=== PATIENT | male | born 1995 | race Caucasian/White ===

== ENCOUNTER 2020-10-09 07:27 | Day surgery (SDC) | payer MEDICAID ==
[~2020-10-09 07:27] MED LIST: Acetaminophen 1,000 MG in Premix Bag 1 BAG IV ONE; Lactated Ringers 1,000 ML IV SCH; cefOXitin 2 GM in Premix Bag 1 BAG IV ONE
--- NOTE | 2020-10-09 08:05 | PCM.PREANE ---
Preanesthetic Assessment - Anesthesia/Transfusion/Family Hx Anesthesia History: Prior Anesthesia Without Reaction Family History of Anesthesia Reaction: No Transfusion History: Prior Transfusion Without Reaction - Review of Systems General: No Symptoms Pulmonary: No Symptoms Cardiovascular: No Symptoms Gastrointestinal: No Symptoms Neurological: No Symptoms Other: Reports: None - Physical Assessment NPO Status Date: 10/09/20 NPO Status Time: 00:01 Vital Signs: Last Vital Signs Temp 97.3 F 10/09/20 07:39 Pulse 73 10/09/20 07:39 Resp 15 10/09/20 07:39 BP 128/76 10/09/20 07:39 Pulse Ox 95 10/09/20 07:39 Height: 5 ft 1 in Weight: 128 lb ASA Class: 2 Mental Status: Alert & Oriented x3 Airway Class: Mallampati = 2 Dentition: Reports: Normal Dentition ROM/Head Extension: Full Lungs: Clear to Auscultation, Normal Respiratory Effort Cardiovascular: Regular Rate, Regular Rhythm - Allergies Allergies/Adverse Reactions: Allergies Allergy/AdvReac Type Severity Reaction Status Date / Time diphenhydramine Allergy affects my Verified 10/02/20 11:41 [From Benadryl] glaucoma - Anesthesia Plan Pre-Op Medication Ordered: None - Acknowledgements Anesthesia Type Planned: General Anesthesia Pt an Appropriate Candidate for the Planned Anesthesia: Yes Alternatives and Risks of Anesthesia Discussed w Pt/Guardian: Yes Pt/Guardian Understands and Agrees with Anesthesia Plan: Yes Additional Comments: npo after mn asd repaired 6 months of age dpresssion hx tob none etoh none par no questions PreAnesthesia Questionnaire HEENT History: Reports: Glaucoma Other HEENT History: wears glasses Cardiovascular History: Reports: Other (See Below) Other Cardiovascular History: palpatations Respiratory History: Reports: Asthma, Sleep Apnea Other Respiratory History: does not use CPAP (unable to afford) Gastrointestinal History: Reports: GERD Genitourinary History: Reports: None Musculoskeletal History: Reports: Arthritis Neurological History: Reports: Other (See Below) Other Neuro History: tremors Psychiatric History: Reports: Anxiety, PTSD, Schizophrenia Other Psychiatric History: social anxiety Endocrine/Metabolic History: Reports: None Hematologic History: Reports: Blood Transfusion(s) Immunologic History: Reports: None Oncologic (Cancer) History: Reports: None Dermatologic History: Reports: Eczema - Past Surgical History Head Surgeries/Procedures: Reports: None HEENT Surgical History: Reports: Adenoidectomy, Eye Surgery Cardiovascular Surgical History: Reports: Other (See Below) Other Cardiovascular Surgeries/Procedures: repair of atrial septal defect in 1997 Respiratory Surgical History: Reports: None GI Surgical History: Reports: Hernia, Inguinal Male Surgical History: Reports: None Endocrine Surgical History: Reports: None Neurological Surgical History: Reports: None Musculoskeletal Surgical History: Reports: None Oncologic Surgical History: Reports: None Dermatological Surgical History: Reports: None - SUBSTANCE USE Tobacco Use Status *Q: Never Tobacco User Recreational Drug Use History: No - HOME MEDS Home Medications: Home Meds Albuterol Sulfate [Albuterol Sulfate HFA] 2 puff INH ASDIRECTED PRN 10/02/20 [History] Ascorbic Acid [Vitamin C] 1,000 mg PO DAILY 10/02/20 [History] Cholecalciferol (Vitamin D3) [Vitamin D3] 3,000 units PO DAILY 10/02/20 [History] Esomeprazole Magnesium 40 mg PO DAILY PRN 10/02/20 [History] Fluticasone Propionate [Flovent HFA] 2 inhalation INH BID 10/02/20 [History] Gabapentin [Neurontin] 300 mg PO TID 10/02/20 [History] Primidone 250 mg PO DAILY 10/02/20 [History] Sertraline HCl 100 mg PO BEDTIME 10/02/20 [History] Vitamin B Complex 1 tab PO DAILY 10/02/20 [History] Zinc 50 mg PO DAILY 10/02/20 [History] traZODone HCl [Trazodone HCl] 50 mg PO BEDTIME 10/02/20 [History] ziprasidone HCL [Ziprasidone HCl] 60 mg PO BID 10/02/20 [History] - CURRENT (IN HOUSE) MEDS Current Meds: Current Medications Lactated Ringer's (Ringers, Lactated) 1,000 mls @ 125 mls/hr IV ASDIRECTED ALEA Last Admin: 10/09/20 07:50 Dose: 125 mls/hr Documented by: Discontinued Medications Cefoxitin Sodium 2 gm/ Premix 50 mls @ 100 mls/hr IV ONETIME ONE Stop: 10/08/20 09:00 Acetaminophen 1,000 mg/ Premix 100 mls @ 400 mls/hr IV NOW ONE Stop: 10/08/20 08:45
[2020-10-09] MEDS ORDERED: fentaNYL 100 MCG/2 ML SDV ONE (08:39)
[2020-10-09] MEDS ORDERED: Midazolam 1 MG/ML 2 ML SDV ONE (08:39)
[2020-10-09] MEDS ORDERED: Propofol 200 MG/20 ML SDV ONE (08:40)
[2020-10-09] MEDS ORDERED: Ondansetron 4 MG/2 ML SDV ONE (08:42)
[2020-10-09] MEDS ORDERED: cefOXitin 1 GM Vial ONE (09:37)
[2020-10-09] MEDS ORDERED: Sodium Chloride 0.9% 20 ML ONE (09:37)
[2020-10-09] MEDS ORDERED: Succinylcholine/Sod PF 100 MG/5 ML SYRINGE IV ONE (10:28)
[2020-10-09] MEDS ORDERED: Glycopyrrolate 0.2 MG/ML SDV ONE (11:40)
--- NOTE | 2020-10-09 12:18 | PCM.OPNOTE ---
- General Post-Op/Procedure Note Date of Surgery/Procedure: 10/09/20 Operative Procedure(s): excision of pilonidal cyst Findings: Pilonidal cyst with hair dictation number #[id number] Pre Op Diagnosis: Pilonidal cyst Post-Op Diagnosis: Pilonidal cyst Anesthesia Technique: General ET Tube Primary Surgeon: Oliver Ovalle Pathology: pilonidal cyst EBL in mLs: 40 Complications: None Condition: Good
--- NOTE | 2020-10-09 12:46 | PCM.POSTAN ---
POST ANESTHESIA ASSESSMENT - MENTAL STATUS Mental Status: Alert (no anesthetic problems), Oriented - VITAL SIGNS Vital Signs: Last Vital Signs Temp 97.7 F 10/09/20 12:14 Pulse 66 10/09/20 12:35 Resp 9 L 10/09/20 12:35 BP 117/67 10/09/20 12:35 Pulse Ox 96 10/09/20 12:35 - RESPIRATORY Respiratory Status: Respiratory Rate WNL, Airway Patent, O2 Saturation Stable - CARDIOVASCULAR CV Status: Pulse Rate WNL, Blood Pressure Stable - GASTROINTESTINAL GI Status: No Symptoms - POST OP HYDRATION Hydration Status: Adequate & Stable
--- NOTE | 2020-10-09 13:22 | PCM48HPAN ---
Post Anesthesia Note - EVALUATION WITHIN 48HRS OF ANESTHETIC Vital Signs in Normal Range: Yes Patient Participated in Evaluation: Yes Respiratory Function Stable: Yes Airway Patent: Yes Cardiovascular Function Stable: Yes Hydration Status Stable: Yes Pain Control Satisfactory: Yes Nausea and Vomiting Control Satisfactory: Yes Mental Status Recovered: Yes Vital Signs: Last Vital Signs Temp 35.2 C L 10/09/20 12:40 Pulse 63 10/09/20 12:55 Resp 15 10/09/20 12:55 BP 127/76 10/09/20 12:55 Pulse Ox 95 10/09/20 12:55
--- NOTE | 2020-10-09 14:52 | OR ---
SURGEON: KYRA PONCE MD DATE OF PROCEDURE: 10/09/2020 PROCEDURE PERFORMED: Excision of pilonidal cyst. PREOPERATIVE DIAGNOSIS: Pilonidal cyst. POSTOPERATIVE DIAGNOSIS: Pilonidal cyst. ESTIMATED BLOOD LOSS: 40 mL. SPECIMENS: Pilonidal cyst. COMPLICATIONS: None. PRIMARY SURGEON: Kyra Ponce MD ANESTHESIA: General. REASON FOR PROCEDURE: The patient is a pleasant 25-year-old gentleman who has had drainage of the cyst in his gluteal cleft for about 8 months. The patient was seen in the clinic. It appeared to have ruptured. He had at that time abscess that had been unroofed. There were no signs of erythema or drainage at the time, just puffs of hair coming out of these 2 areas. I did go over with patient risks, goals, and alternatives of the excision of pilonidal cyst including but not limited to bleeding, infection, recurrence, injury to underlying structures, scar formation, seroma, hematoma, and pain. I did go over with the patient that we may or may not close the incision. I did go over if I do close the incision, he has a rate of recurrent infection. If this happens, it will be needed to be opened up and I will close by secondary intent. The patient did say he would like to have it closed if possible. OPERATIVE NARRATIVE: The patient was brought to the OR. He was prepped and draped in the usual sterile fashion. He was placed in the prone position. Antibiotics were given. SCDs were placed, and anesthesia was provided by the anesthesia team. A time-out was performed. The area was inspected. The patient had the 2 larger openings. Again, the middle one had a chunk of hair in it, that was removed. He also had a small pinpoint defect little more superior. All these were probed. The middle opening did track upwards to that small pinpoint up higher. Now all 3 openings were excised in an elliptical incision. This was made slightly off the midline. This incision was made down to the fascia of the tailbone and carefully excised. There was good hemostasis. It appeared to have the whole cyst removed. Now, the area was again injected with local. Because there appeared to be no active infection, but at this time, there was no erythema, the wound edges did come together nicely and without very much tension. We did decide to close the incision. I did do a layer of 3-0 Vicryl below. The wound came together very well without any tension. The wound was irrigated with good hemostasis. Now, the skin was closed with a series of interrupted nylon, they came together well. The incision was just slightly off midline. At the end of case, sponge and needle counts were correct. A thin layer of antibiotic ointment was placed over the incision. The incision length was approximately 9.5 cm long. The patient was transferred to recovery room in stable condition. VINICIUS / MAIRA /[id number]
== END 2020-10-09 14:14 | disposition home or self-care (01) ==
LOC: MW.SDS 07:27
PROVIDERS: ATTEND Surgery
DX: L98.419 Non-pressure chronic ulcer of buttock with unspecified severity (principal); L05.91 Pilonidal cyst without abscess; Z88.8 Allergy status to other drugs, medicaments and biological substances; Z79.899 Other long term (current) drug therapy; Z98.890 Other specified postprocedural states
CPT/HCPCS: 11770; 88304; J0330; J0694; J2250; J2405; J2704; J3010; J3490; J7120; 00300

== ENCOUNTER 2021-01-28 09:05 | Emergency (ER) | payer MEDICARE, MEDICAID ==
--- NOTE | 2021-01-28 09:35 | EDM.PDOC ---
ED HPI GENERAL MEDICAL PROBLEM - General Chief Complaint: Behavioral/Psych Stated Complaint: MENTAL HEALTH CHECK Time Seen by Provider: 01/28/21 09:06 Source of Information: Reports: Patient History Limitations: Reports: No Limitations - History of Present Illness INITIAL COMMENTS - FREE TEXT/NARRATIVE: 25-year-old male past medical history PTSD, anxiety, depression presents for self harming thoughts. Patient notes that he does see a therapist. He was endorsing self-harm thoughts to his therapist who called PD and recommended patient be brought to emergency department for assessment. On my exam patient is denying suicidal ideation but does state that he has overwhelming thoughts of cutting himself. He has never actually done it. He has required hospitalization in the past for mental illness. He takes several medications and states he is compliant. He does have a mental health nurse practitioner that he sees in [facility]. Denies drug or alcohol use. - Related Data Allergies Allergy/AdvReac Type Severity Reaction Status Date / Time diphenhydramine Allergy affects my Verified 01/28/21 09:20 [From Benadpaml] glaucoma Home Meds: Home Meds Albuterol Sulfate [Albuterol Sulfate HFA] 2 puff INH ASDIRECTED PRN 10/02/20 [History] Ascorbic Acid [Vitamin C] 1,000 mg PO DAILY 10/02/20 [History] Cholecalciferol (Vitamin D3) [Vitamin D3] 3,000 units PO DAILY 10/02/20 [History] Esomeprazole Magnesium 40 mg PO DAILY PRN 10/02/20 [History] Fluticasone Propionate [Flovent HFA] 2 inhalation INH BID 10/02/20 [History] Gabapentin [Neurontin] 300 mg PO TID 10/02/20 [History] Primidone 250 mg PO DAILY 10/02/20 [History] Sertraline HCl 100 mg PO BEDTIME 10/02/20 [History] Vitamin B Complex 1 tab PO DAILY 10/02/20 [History] Zinc 50 mg PO DAILY 10/02/20 [History] traZODone HCl [Trazodone HCl] 50 mg PO BEDTIME 10/02/20 [History] ziprasidone HCL [Ziprasidone HCl] 60 mg PO BID 10/02/20 [History] Acetaminophen/HYDROcodone [Severance 325-5 MG] 1 tab PO Q6H PRN #10 tablet 10/09/20 [Rx] Past Medical History HEENT History: Reports: Glaucoma Other HEENT History: wears glasses Cardiovascular History: Reports: Other (See Below) Other Cardiovascular History: palpatations Respiratory History: Reports: Asthma, Sleep Apnea Other Respiratory History: does not use CPAP (unable to afford) Gastrointestinal History: Reports: GERD Genitourinary History: Reports: None Musculoskeletal History: Reports: Arthritis Neurological History: Reports: Other (See Below) Other Neuro History: tremors Psychiatric History: Reports: Anxiety, PTSD, Schizophrenia Other Psychiatric History: social anxiety Endocrine/Metabolic History: Reports: None Hematologic History: Reports: Blood Transfusion(s) Immunologic History: Reports: None Oncologic (Cancer) History: Reports: None Dermatologic History: Reports: Eczema - Past Surgical History Head Surgeries/Procedures: Reports: None HEENT Surgical History: Reports: Adenoidectomy, Eye Surgery Cardiovascular Surgical History: Reports: Other (See Below) Other Cardiovascular Surgeries/Procedures: repair of atrial septal defect in 1997 Respiratory Surgical History: Reports: None GI Surgical History: Reports: Hernia, Inguinal Male Surgical History: Reports: None Endocrine Surgical History: Reports: None Neurological Surgical History: Reports: None Musculoskeletal Surgical History: Reports: None Oncologic Surgical History: Reports: None Dermatological Surgical History: Reports: None Social & Family History - Family History Family Medical History: No Pertinent Family History ED ROS GENERAL - Review of Systems Review Of Systems: Comprehensive ROS is negative, except as noted in HPI. ED EXAM, GENERAL - Physical Exam Exam: See Below Exam Limited By: No Limitations General Appearance: Alert, WD/WN, No Apparent Distress Ears: Hearing Grossly Normal Throat/Mouth: Normal Voice, No Airway Compromise Head: Atraumatic, Normocephalic Respiratory/Chest: No Respiratory Distress, No Accessory Muscle Use Cardiovascular: Normal Peripheral Pulses Extremities: Normal Inspection Neurological: Alert, Normal Cognition, Normal Gait Psychiatric: Normal Affect, Normal Mood Skin Exam: Warm, Dry, Intact, Normal Color Course - Vital Signs Last Recorded V/S: Last Vital Signs Temp 96.6 F L 01/28/21 09:20 Pulse 84 01/28/21 09:20 Resp 20 01/28/21 09:20 BP 122/73 01/28/21 09:20 Pulse Ox 98 01/28/21 09:20 - Re-Assessments/Exams Free Text/Narrative Re-Assessment/Exam: 01/28/21 09:56 Had a long discussion with patient regarding disposition. Seeing as patient is not actively suicidal I told him that we could either reach out to [facility] for a crisis appointment today versus getting some lab work and reaching out to [facility] for possible admission for psychiatric s ervices. Patient states that he feels safe to follow-up with [facility] today rather than pursuing inpatient treatment as he is also worried about missing work. I did call [facility] and they tell me that they can see him today. Phone number and address was provided to the patient. Patient is comfortable with this plan. I informed the patient that if it anytime things change and he has having thoughts with a plan to harm himself that he should come back to the emergency department. I also communicated with [facility] that if on their assessment they find anything that patient did not disclose to us and they were concerned for his safety that he is welcome to come back to the emergency department for emergent psychiatric placement. Departure - Departure Time of Disposition: 09:47 Disposition: Home, Self-Care 01 Condition: Good Clinical Impression: Depression Qualifiers: Depression Type: unspecified Qualified Code(s): F32.9 - Major depressive diso rder, single episode, unspecified - Discharge Information Instructions: Major Depressive Disorder, Adult Referrals: Marcus Ho MD [Primary Care Provider] - Forms: ED Department Discharge Additional Instructions: Please go speak with the crisis counselor at [facility]. Their address is provided below. If at any point you are feeling like you are going to harm yourself and have a plan to hurt yourself please do not hesitate to come back to the emergency department so that we can arrange inpatient psychiatric services. We are always open and available for you. [facility] [address] [place], [place] The best way to protect yourself and others from COVID-19 is to take one of the three safe and effective vaccines that have been proven to substantially reduce risk of both infection and severe illness. [facility] is currently offering COVID vaccinations for anyone age 18 and older. To schedule an appointment call [phone]. Or, to be contacted by our clinics about scheduling your vaccine online, please go to [email or web address] The following information is given to patients seen in the emergency department who are being discharged to home. This information is to outline your options for follow-up care. We provide all patients seen in our emergency department with a follow-up referral. The need for follow-up, as well as the timing and circumstances, are variable depending upon the specifics of your emergency department visit. If you don't have a primary care physician on staff, we will provide you with a referral. We always advise you to contact your personal physician following an emergency department visit to inform them of the circumstance of the visit and for follow-up with them and/or the need for any referrals to a consulting specialist. The emergency department will also refer you to a specialist when appropriate. This referral assures that you have the opportunity for follow-up care with a specialist. All of these measure are taken in an effort to provide you with optimal care, which includes your follow-up. Under all circumstances we always encourage you to contact your private physician who remains a resource for coordinating your care. When calling for follow-up care, please make the office aware that this follow-up is from your recent emergency room visit. If for any reason you are refused follow-up, please contact the [facility] Emergency Department at and asked to speak to the emergency department charge nurse. Please follow up with your primary care physician. If you do not have a primary care physician, see below: [facility] [address] [place] [id number] [facility] [address] [place] [id number] Sepsis Event Note (ED) - Evaluation Sepsis Screening Result: No Definite Risk - Focused Exam Vital Signs: Vital Signs Temp Pulse Resp BP Pulse Ox 01/28/21 09:20 96.6 F L 84 20 122/73 98
== END 2021-01-28 10:03 | disposition home or self-care (01) ==
LOC: MW.ED 09:05
DX: F32.9 Major depressive disorder, single episode, unspecified (principal); J45.909 Unspecified asthma, uncomplicated; K21.9 Gastro-esophageal reflux disease without esophagitis; M19.90 Unspecified osteoarthritis, unspecified site; Z88.8 Allergy status to other drugs, medicaments and biological substances; Z79.899 Other long term (current) drug therapy
CPT/HCPCS: 99284

== ENCOUNTER 2021-03-23 20:25 | Emergency (ER) | payer MEDICARE, MEDICAID ==
[2021-03-24] MEDS ORDERED: Sodium Chloride 0.9% 2.5 ML Syringe FLUSH PRN (03:03)
[2021-03-24] MEDS ORDERED: Sodium Chloride 0.9% 1,000 ML IV ONE (03:03)
[2021-03-24 03:35] LABS: BLOOD UREA NITROGEN,BUN 22 mg/dL (7.0-18.0); CARBON DIOXIDE,CO2 23.7 mmol/L (21.0-32.0); CHLORIDE,CL 105 mmol/L (98-107); GLUCOSE RANDOM 96 mg/dL (74-106); POTASSIUM,K 3.6 mmol/L (3.5-5.1); SODIUM,NA 142 mmol/L (136-148)
[2021-03-24] MEDS ORDERED: LORazepam 2 MG/ML SDV IVPUSH ONE (03:51)
--- NOTE | 2021-03-24 03:51 | EDM.PDOC ---
ED HPI GENERAL MEDICAL PROBLEM - General Chief Complaint: Neurological Problem Stated Complaint: TREMORS, HEADACHE Time Seen by Provider: 03/24/21 02:55 - History of Present Illness INITIAL COMMENTS - FREE TEXT/NARRATIVE: HISTORY AND PHYSICAL: History of present illness: This is a 25-year-old gentleman who presents ER today secondary to concerns of possible medication reactions or side effects. Patient reports that he has had increased anxiety, increased tremor, headaches, dizziness and increased aggressive behavior for the last several days. Patient denies any recent fevers, shakes, chills, nausea, vomiting, diarrhea, dysuria, frequency, urgency, chest pain, shortness of breath. Patient denies any homicidal or suicidal ideation. Patient has any auditory or visual hallucinations. Patient reports that he works at [employer]. Patient reports that he lives alone and has recently gone a service animal. Patient has of a history of suicide ideation but denies any suicidal thoughts at this time or homicidal thoughts. Patient reports that he is self-care at home by himself. Patient reports that he does have a nurse practitioner that follows with him closely. Review of systems: As per history of present illness and below otherwise all systems reviewed and negative. Past medical history: As per history of present illness and as reviewed below otherwise noncontributory. Surgical history: As per history of present illness and as reviewed below otherwise noncontributory. Social history: No reported history of drug abuse. Family history: As per history of present illness and as reviewed below otherwise noncontributory. Physical exam: This patient was seen and evaluated during the 2019 SARS-CoV-2 novel coronavirus pandemic period. Community viral transmission is ongoing at time of this encoun ter and the emergency department is operating under pandemic response procedures. Constitutional: Patient is oriented to person, place, and time. Appears well- developed and well-nourished. No distress. HEENT: Moist mucous membranes Head: Normocephalic and atraumatic Eyes: Right eye exhibits no discharge. Left eye exhibits no discharge. No scleral icterus Neck: Normal range of motion. No tracheal deviation present. Cardiovascular: Normal rate and regular rhythm. Pulmonary: Effort normal, no respiratory distress. Abdominal: No distention Musculoskeletal: Normal range of motion Neurologic: Alert and oriented to person, place and time. Skin: [place], warm and dry. Psychiatric: Normal mood and affect. Behavior is normal. Judgment and thought content normal. Nursing note and vital signs have been reviewed Patient's ER physical exam is significant for a well-developed well-nourished 25-year-old gentleman who is resting comfortably in bed. Patient does appear to have a resting tremor to both hands. Patient denies any anxiety or stressors. Diagnostics: [] Therapeutics: [] Assessment and plan: 25-year-old gentleman who presents ER today secondary to increased anxiety, tremor, dizziness, headaches for several days. Patient reports he has been on his usual medications and has no changes recently. Patient denies any recent fevers, shakes, chills, nausea, vomit, diarrhea, dysuria, frequency, urgency. Patient's labs are all within normal limits. Patient has been given IV fluids here to assist with hydration. Patient reports that he works outside at [employer]. Patient has had his Covid vaccination already. Etiology the patient's symptoms are unclear however patient currently is clinically hemodynamically stable. It is unclear whether or not this may be a medication reaction or not or if this might be secondary to anxiety/dehydration. In either case, feel that the patient right now does not present with any acute emergent issues that will require further inpatient evaluation and would benefit from seeing his nurse practitioner as an outpatient so she could review his medications with him. Reassessment at the time of disposition demonstrates that the patient is in no acute distress. The patient has remained stable throughout the entire ED visit and is without objective evidence for acute process requiring urgent interve ntion or hospitalization. The patient is stable for discharge, counseling is provided as documented above, discussed symptomatic treatment and specific conditions for return. I have spoken with the patient/caregiver and discussed todays findings, in addition to providing specific details for the plan of care. Questions are answered and there is agreement with the plan. Definitive disposition and diagnosis as appropriate pending reevaluation and review of above. - Related Data Allergies Allergy/AdvReac Type Severity Reaction Status Date / Time diphenhydramine Allergy affects my Verified 01/28/21 09:20 [From Benadryl] glaucoma Home Meds: Home Meds Albuterol Sulfate [Albuterol Sulfate HFA] 2 puff INH ASDIRECTED PRN 10/02/20 [History] Ascorbic Acid [Vitamin C] 1,000 mg PO DAILY 10/02/20 [History] Cholecalciferol (Vitamin D3) [Vitamin D3] 3,000 units PO DAILY 10/02/20 [History] Esomeprazole Magnesium 40 mg PO DAILY PRN 10/02/20 [History] Fluticasone Propionate [Flovent HFA] 2 inhalation INH BID 10/02/20 [History] Gabapentin [Neurontin] 300 mg PO TID 10/02/20 [History] Primidone 250 mg PO DAILY 10/02/20 [History] Sertraline HCl 150 mg PO BEDTIME 10/02/20 [History] Vitamin B Complex 1 tab PO DAILY 10/02/20 [History] Zinc 50 mg PO DAILY 10/02/20 [History] traZODone HCl [Trazodone HCl] 50 mg PO BEDTIME 10/02/20 [History] ziprasidone HCL [Ziprasidone HCl] 60 mg PO BID 10/02/20 [History] Prazosin [Minpress] 4 mg PO DAILY 03/24/21 [History] Prazosin [Minpress] 6 mg PO BEDTIME 03/24/21 [History] Topiramate [Topamax] 1 tab PO BID 03/24/21 [History] Past Medical History HEENT History: Reports: Glaucoma Other HEENT History: wears glasses Cardiovascular History: Reports: Other (See Below) Other Cardiovascular History: palpatations Respiratory History: Reports: Asthma, Sleep Apnea Other Respiratory History: does not use CPAP (unable to afford) Gastrointestinal History: Reports: GERD Genitourinary History: Reports: None Musculoskeletal History: Reports: Arthritis Neurological History: Reports: Other (See Below) Other Neuro History: tremors Psychiatric History: Reports: Anxiety, PTSD, Schizophrenia, Other (See Below) Other Psychiatric History: PSTD, Psycosocialproblems, Endocrine/Metabolic History: Reports: None Hematologic History: Reports: Blood Transfusion(s) Immunologic History: Reports: None Oncologic (Cancer) History: Reports: None Dermatologic History: Reports: Eczema - Infectious Disease History Infectious Disease History: Reports: None - Past Surgical History Head Surgeries/Procedures: Reports: None HEENT Surgical History: Reports: Adenoidectomy, Eye Surgery Cardiovascular Surgical History: Reports: Other (See Below) Other Cardiovascular Surgeries/Procedures: repair of atrial septal defect in 1997 Respiratory Surgical History: Reports: None GI Surgical History: Reports: Hernia, Inguinal Male Surgical History: Reports: None Endocrine Surgical History: Reports: None Neurological Surgical History: Reports: None Musculoskeletal Surgical History: Reports: None Oncologic Surgical History: Reports: None Dermatological Surgical History: Reports: None Social & Family History - Family History Family Medical History: No Pertinent Family History - Tobacco Use Tobacco Use Status *Q: Never Tobacco User Second Hand Smoke Exposure: No - Caffeine Use Caffeine Use: Reports: None - Recreational Drug Use Recreational Drug Use: No ED ROS GENERAL - Review of Systems Review Of Systems: See Below ED EXAM, GENERAL - Physical Exam Exam: See Below Course - Vital Signs Last Recorded V/S: Last Vital Signs Temp 98.4 F 03/24/21 00:15 Pulse 88 03/24/21 00:15 Resp 15 03/24/21 00:15 BP 123/79 03/24/21 00:15 Pulse Ox 97 03/24/21 00:15 - Orders/Labs/Meds Orders: Active Orders 24 hr Category Date Time Status Sodium Chloride 0.9% [Normal Saline] 1,000 ml Med 03/24/21 03:03 Active IV .Bolus Sodium Chloride 0.9% [Saline Flush] Med 03/24/21 03:03 Active 2.5 ml FLUSH ASDIRECTED PRN Medication Orders Sodium Chloride (Normal Saline) 1,000 mls @ 999 mls/hr IV .Bolus ONE Stop: 03/24/21 04:03 Last Admin: 03/24/21 03:19 Dose: 999 mls/hr Documented by: XANDER Sodium Chloride (Sodium Chloride 0.9% 2.5 Ml Syringe) 2.5 ml FLUSH ASDIRECTED PRN PRN Reason: Keep Vein Open Last Admin: 03/24/21 03:19 Dose: 2.5 ml Documented by: XANDER Labs: Laboratory Tests 03/24/21 03/24/21 Range/Units 03:13 03:13 WBC 11.72 H (4.0-11.0) K/uL RBC 5.29 (4.50-5.90) M/uL Hgb 15.3 (13.0-17.0) g/dL Hct 44.1 (38.0-50.0) % MCV 83.4 (80.0-98.0) fL MCH 28.9 (27.0-32.0) pg MCHC 34.7 (31.0-37.0) g/dL RDW Std Deviation 46.8 (28.0-62.0) fl RDW Coeff of Gee 16 H (11.0-15.0) % Plt Count 245 (150-400) K/uL MPV 11.00 (7.40-12.00) fL Neut % (Auto) 64.5 (48.0-80.0) % Lymph % (Auto) 25.4 (16.0-40.0) % [place] % (Auto) 9.7 (0.0-15.0) % Eos % (Auto) 0.2 (0.0-7.0) % Baso % (Auto) 0.2 (0.0-1.5) % Neut # (Auto) 7.6 H (1.4-5.7) K/uL Lymph # (Auto) 3.0 H (0.6-2.4) K/uL [place] # (Auto) 1.1 H (0.0-0.8) K/uL Eos # (Auto) 0.0 (0.0-0.7) K/uL Baso # (Auto) 0.0 (0.0-0.1) K/uL Nucleated RBC % 0.0 /100WBC Nucleated RBCs # 0 K/uL Sodium 142 (136-148) mmol/L Potassium 3.6 (3.5-5.1) mmol/L Chloride 105 (98-107) mmol/L Carbon Dioxide 23.7 (21.0-32.0) mmol/L BUN 22 H (7.0-18.0) mg/dL Creatinine 1.2 (0.8-1.3) mg/dL Est Cr Clr Drug Dosing 70.82 mL/min Estimated GFR (MDRD) > 60.0 ml/min Glucose 96 (74-106) mg/dL Calcium 8.8 (8.5-10.1) mg/dL Total Bilirubin 0.4 (0.2-1.0) mg/dL AST 35 (15-37) IU/L ALT 35 (14-63) IU/L Alkaline Phosphatase 70 (46-116) U/L Total Protein 8.4 H (6.4-8.2) g/dL Albumin 4.3 (3.4-5.0) g/dL Globulin 4.1 H (2.6-4.0) g/dL Albumin/Globulin Ratio 1.1 (0.9-1.6) Meds: Medications Generic Name Dose Route Start Last Admin Trade Name Sanketq PRN Reason Stop Dose Admin Sodium Chloride 1,000 mls @ 999 mls/hr 03/24/21 03:03 03/24/21 03:19 Normal Saline IV 03/24/21 04:03 999 mls/hr .Bolus ONE Administration Sodium Chloride 2.5 ml 03/24/21 03:03 03/24/21 03:19 Sodium Chloride 0.9% 2.5 Ml Syringe FLUSH 2.5 ml ASDIRECTED PRN Administration Keep Vein Open Departure - Departure Time of Disposition: 03:50 Disposition: Home, Self-Care 01 Condition: Good Clinical Impression: Dizziness, Headache, Medication reaction - Discharge Information Instructions: Dehydration, Adult, [id number], Dizziness Referrals: Marcus Ho MD [Primary Care Provider] - Additional Instructions: You were seen and evaluated in the ER today secondary to concerns of dizziness and a headache along with tremors and increased aggressive behavior that is been ongoing now. The etiology of your symptoms are unclear however all the blood tests that we have checked are all within normal limits. We will give you a dose of Ativan in the ED to help you with relaxation tonight please call your nurse practitioner in the morning make an appointment to see her so that she can review your medications with you and see if that might be the culprit. Please go home today and get plenty of rest. The following information is given to patients seen in the emergency department who are being discharged to home. This information is to outline your options for follow-up care. We provide all patients seen in our emergency department with a follow-up referral. The need for follow-up, as well as the timing and circumstances, are variable depending upon the specifics of your emergency department visit. If you don't have a primary care physician on staff, we will provide you with a referral. We always advise you to contact your personal physician following an emergency department visit to inform them of the circumstance of the visit and for follow-up with them and/or the need for any referrals to a consulting specialist. The emergency department will also refer you to a specialist when appropriate. This referral assures that you have the opportunity for follow-up care with a specialist. All of these measure are taken in an effort to provide you with optimal care, which includes your follow-up. Under all circumstances we always encourage you to contact your private physician who remains a resource for coordinating your care. When calling for follow-up care, please make the office aware that this follow-up is from your recent emergency room visit. If for any reason you are refused follow-up, please contact the [facility] Emergency Department at and asked to speak to the emergency department charge nurse. [facility] - Primary Care [address] [place] [address] [facility] [address] [place] [id number] Sepsis Event Note (ED) - Focused Exam Vital Signs: Vital Signs Temp Pulse Resp BP Pulse Ox 03/24/21 00:15 98.4 F 88 15 123/79 97 - My Orders Last 24 Hours: My Active Orders 03/24/21 03:03 Sodium Chloride 0.9% [Normal Saline] 1,000 ml IV .Bolus Sodium Chloride 0.9% [Saline Flush] 2.5 ml FLUSH ASDIRECTED PRN - Assessment/Plan Last 24 Hours: My Active Orders 03/24/21 03:03 Sodium Chloride 0.9% [Normal Saline] 1,000 ml IV .Bolus Sodium Chloride 0.9% [Saline Flush] 2.5 ml FLUSH ASDIRECTED PRN
== END 2021-03-24 04:09 | disposition home or self-care (01) ==
LOC: MW.ED 20:25
DX: R42 Dizziness and giddiness (principal); R51.9 Headache, unspecified; T50.905A Adverse effect of unspecified drugs, medicaments and biological substances, initial encounter; J45.909 Unspecified asthma, uncomplicated; K21.9 Gastro-esophageal reflux disease without esophagitis; M19.90 Unspecified osteoarthritis, unspecified site; Z88.8 Allergy status to other drugs, medicaments and biological substances; Z79.899 Other long term (current) drug therapy
CPT/HCPCS: 36415; 80053; 85025; 96374; 99284; J2060; J7030

== ENCOUNTER 2021-05-09 16:46 | Emergency (ER) | payer MEDICARE, MEDICAID ==
--- NOTE | 2021-05-09 17:12 | EDM.PDOC ---
ED HPI GENERAL MEDICAL PROBLEM - General Chief Complaint: Respiratory Problem Stated Complaint: ASTHMA, TROUBLE BREATHING Time Seen by Provider: 05/09/21 16:47 - History of Present Illness INITIAL COMMENTS - FREE TEXT/NARRATIVE: 25-year-old male history of anxiety and depression history of asthma presenting with shortness of breath. Patient states that he has had some trouble with his breathing for the last few weeks but it is worsened over the last week he has been using his as needed albuterol inhaler around 2 times a day with minimal relief. He reports it is associated with an on and off nonradiating substernal chest tightness. This happened once earlier this week and then once today it is mild at this time. No syncope or near syncope no nausea or vomiting no abdominal pain no fever no myalgias or arthralgias. No lower extremity pain or swelling. Symptoms not improved by home inhaler. - Related Data Allergies Allergy/AdvReac Type Severity Reaction Status Date / Time diphenhydramine Allergy affects my Verified 05/09/21 17:00 [From Marisol] glaucoma Home Meds: Home Meds Albuterol Sulfate [Albuterol Sulfate HFA] 2 puff INH ASDIRECTED PRN 10/02/20 [History] Ascorbic Acid [Vitamin C] 1,000 mg PO DAILY 10/02/20 [History] Cholecalciferol (Vitamin D3) [Vitamin D3] 3,000 units PO DAILY 10/02/20 [History] Esomeprazole Magnesium 40 mg PO DAILY PRN 10/02/20 [History] Fluticasone Propionate [Flovent HFA] 2 inhalation INH BID 10/02/20 [History] Gabapentin [Neurontin] 300 mg PO TID 10/02/20 [History] Primidone 250 mg PO DAILY 10/02/20 [History] Sertraline HCl 150 mg PO BEDTIME 10/02/20 [History] Vitamin B Complex 1 tab PO DAILY 10/02/20 [History] Zinc 50 mg PO DAILY 10/02/20 [History] traZODone HCl [Trazodone HCl] 50 mg PO BEDTIME 10/02/20 [History] ziprasidone HCL [Ziprasidone HCl] 60 mg PO BID 10/02/20 [History] Prazosin [Minpress] 4 mg PO DAILY 03/24/21 [History] Prazosin [Minpress] 6 mg PO BEDTIME 03/24/21 [History] Topiramate [Topamax] 75 mg PO BEDTIME 03/24/21 [History] busPIRone [Buspar] 1.5 tab PO DAILY 05/09/21 [History] Past Medical History HEENT History: Reports: Glaucoma Other HEENT History: wears glasses Cardiovascular History: Reports: Other (See Below) Other Cardiovascular History: palpatations Respiratory History: Reports: Asthma, Sleep Apnea Other Respiratory History: does not use CPAP (unable to afford) Gastrointestinal History: Reports: GERD Genitourinary History: Reports: None Musculoskeletal History: Reports: Arthritis Neurological History: Reports: Other (See Below) Other Neuro History: tremors Psychiatric History: Reports: Anxiety, PTSD, Schizophrenia, Other (See Below) Other Psychiatric History: PSTD, Psycosocialproblems, Endocrine/Metabolic History: Reports: None Hematologic History: Reports: Blood Transfusion(s) Immunologic History: Reports: None Oncologic (Cancer) History: Reports: None Dermatologic History: Reports: Eczema - Infectious Disease History Infectious Disease History: Reports: None - Past Surgical History Head Surgeries/Procedures: Reports: None HEENT Surgical History: Reports: Adenoidectomy, Eye Surgery Cardiovascular Surgical History: Reports: Other (See Below) Other Cardiovascular Surgeries/Procedures: repair of atrial septal defect in 1997 Respiratory Surgical History: Reports: None GI Surgical History: Reports: Hernia, Inguinal Male Surgical History: Reports: None Endocrine Surgical History: Reports: None Neurological Surgical History: Reports: None Musculoskeletal Surgical History: Reports: None Oncologic Surgical History: Reports: None Dermatological Surgical History: Reports: None Social & Family History - Family History Family Medical History: No Pertinent Family History - Caffeine Use Caffeine Use: Reports: None ED ROS GENERAL - Review of Systems Review Of Systems: See Below Free Text/Narrative/Comment: General: No fever. Skin: No rash. Eyes: No vision problems. ENT: No sore throat. Neck: No neck stiffness. Respiratory: Per HPI Cardiac: Per HPI Gastrointestinal: No nausea, vomiting or abdominal pain. Musculoskeletal: No myalgias/arthralgias. Neurologic: No headache. ED EXAM, GENERAL - Physical Exam Exam: See Below Free Text/Narrative:: General Appearance: No acute distress, appears comfortable Skin: No rash HEENT: Normocephalic/atraumatic, sclera anicteric, mucous membranes moist Neck: Normal range of motion Chest and Lungs: Bilateral breath sounds, clear to auscultation Cardiovascular: Regular rate and rhythm Abdomen: Soft, non-tender Back: Normal Musculoskeletal: No edema or tenderness Neurologic: Awake, alert, no obvious deficits, moving all extremities Psychiatric: Appropriate, cooperative #1 Interpretation EKG Date: 05/09/21 Time: 17:18 EKG Interpretation Comments: Sinus rhythm rate of 81, right axis deviation, no acute ischemia. Course - Vital Signs Last Recorded V/S: Last Vital Signs Temp 98.5 F 05/09/21 17:02 Pulse 89 05/09/21 17:02 Resp 20 05/09/21 17:02 BP 121/60 05/09/21 17:02 Pulse Ox 95 05/09/21 17:02 - Orders/Labs/Meds Labs: Laboratory Tests 05/09/21 05/09/21 Range/Units 17:34 17:34 WBC 8.16 (4.0-11.0) K/uL RBC 4.77 (4.50-5.90) M/uL Hgb 13.7 (13.0-17.0) g/dL Hct 41.0 (38.0-50.0) % MCV 86.0 (80.0-98.0) fL MCH 28.7 (27.0-32.0) pg MCHC 33.4 (31.0-37.0) g/dL RDW Std Deviation 47.6 (28.0-62.0) fl RDW Coeff of Gee 15 (11.0-15.0) % Plt Count 224 (150-400) K/uL MPV 11.40 (7.40-12.00) fL Neut % (Auto) 62.1 (48.0-80.0) % Lymph % (Auto) 28.9 (16.0-40.0) % [place] % (Auto) 8.0 (0.0-15.0) % Eos % (Auto) 0.9 (0.0-7.0) % Baso % (Auto) 0.1 (0.0-1.5) % Neut # (Auto) 5.1 (1.4-5.7) K/uL Lymph # (Auto) 2.4 (0.6-2.4) K/uL [place] # (Auto) 0.7 (0.0-0.8) K/uL Eos # (Auto) 0.1 (0.0-0.7) K/uL Baso # (Auto) 0.0 (0.0-0.1) K/uL Nucleated RBC % 0.0 /100WBC Nucleated RBCs # 0 K/uL Sodium 136 (136-148) mmol/L Potassium 3.9 (3.5-5.1) mmol/L Chloride 104 (98-107) mmol/L Carbon Dioxide 22.4 (21.0-32.0) mmol/L BUN 20 H (7.0-18.0) mg/dL Creatinine 1.2 (0.8-1.3) mg/dL Est Cr Clr Drug Dosing 70.82 mL/min Estimated GFR (MDRD) > 60.0 ml/min Glucose 89 (74-106) mg/dL Calcium 8.4 L (8.5-10.1) mg/dL Total Bilirubin 0.3 (0.2-1.0) mg/dL AST 22 (15-37) IU/L ALT 54 (14-63) IU/L Alkaline Phosphatase 80 (46-116) U/L Troponin I < 0.050 (0.000-0.056) ng/mL Total Protein 7.6 (6.4-8.2) g/dL Albumin 3.7 (3.4-5.0) g/dL Globulin 3.9 (2.6-4.0) g/dL Albumin/Globulin Ratio 0.9 (0.9-1.6) Departure - Departure Time of Disposition: 18:32 Disposition: Home, Self-Care 01 Condition: Good Clinical Impression: Chest pain - Discharge Information *PRESCRIPTION DRUG MONITORING PROGRAM REVIEWED*: Not Applicable *COPY OF PRESCRIPTION DRUG MONITORING REPORT IN PATIENT RUBY: Not Applicable Instructions: Nonspecific Chest Pain, Adult Referrals: Marcus Ho MD [Primary Care Provider] - Forms: ED Department Discharge Additional Instructions: Your EKG today was good. Your labs showed no sign of any infectious process your chest x-ray was normal and showed no signs of pneumonia. Throughout your stay here in the emergency room your exam showed open lungs without signs of wheezing or active asthma. For this reason you're not started on steroids or recommended to increase your breathing treatments. I think it is likely that your symptoms are coming from other process such as stress or anxiety. However I encourage you to follow-up with Dr. Ho as scheduled. If your symptoms worsen over the weekend or you have any other new symptoms that concern you please call your doctor or return to the ER. Sepsis Event Note (ED) - Evaluation Sepsis Screening Result: No Definite Risk - Focused Exam Vital Signs: Vital Signs Temp Pulse Resp BP Pulse Ox 05/09/21 17:02 98.5 F 89 20 121/60 95 - Assessment/Plan Assessment:: Well-appearing 25-year-old male presenting with chest pain and shortness of breath. The patient does have a history of asthma he has no wheezing at this time lungs are quite clear his work of breathing is normal his oxygen is normal no indication for asthma related treatment at this point. Chest x-ray pending to evaluate for pneumonia. No findings that would suggest COVID-19. Patient is a family history of CAD think it is unlikely in him but given the chest pain EKG and several troponin will be done. Patient is PERC negative PE considered but felt unlikely. No findings suggest aortic dissection. Certainly stress and anxiety may be playing a role in the patient's symptoms but this would be a diagnosis of exclusion. 1830: Patient's labs are normal chest x-ray normal EKG unremarkable. On reassessment patient's lungs remain crystal-clear. I think it is more likely that stressor other factors are contributing to the patient's symptoms I see no findings right now that indicate a significant asthma exacerbation. Patient last took albuterol around 2 hours ago given his other medications and medical history I would not start empiric steroids or further asthma treatment at this point. His vital signs have remained normal his work of breathing has remained normal. Patient has a follow-up appointment with his primary care doctor in 3 days patient's been encouraged to keep this appointment.
--- NOTE | 2021-05-09 17:31 | CR ---
INDICATION: SOB TECHNIQUE: Chest 2 views. COMPARISON: None. FINDINGS: Cardiovascular and mediastinum: Heart size and vasculature are normal in caliber and appearance. Mediastinum is within normal limits. Lungs and pleural spaces: Lungs are clear. No sign of infiltrate or mass. No sign of pleural effusion. No pneumothorax. Bones and soft tissues: No significant findings. IMPRESSION: Unremarkable chest. Dictated by: Garth Bowden MD @ 05/09/2021 17:31:02 (Electronically Signed)
[2021-05-09 18:02] LABS: BLOOD UREA NITROGEN,BUN 20 mg/dL (7.0-18.0); CARBON DIOXIDE,CO2 22.4 mmol/L (21.0-32.0); CHLORIDE,CL 104 mmol/L (98-107); GLUCOSE RANDOM 89 mg/dL (74-106); POTASSIUM,K 3.9 mmol/L (3.5-5.1); SODIUM,NA 136 mmol/L (136-148)
== END 2021-05-09 18:53 | disposition home or self-care (01) ==
LOC: MW.ED 16:46
DX: R07.2 Precordial pain (principal); K21.9 Gastro-esophageal reflux disease without esophagitis; Z88.8 Allergy status to other drugs, medicaments and biological substances; Z79.899 Other long term (current) drug therapy
CPT/HCPCS: 36415; 71046; 71046-26; 80053; 84484; 85025; 99285-25

== ENCOUNTER 2021-05-10 19:08 | Emergency (ER) | payer MEDICARE, MEDICAID ==
--- NOTE | 2021-05-10 20:29 | PCM.EKG ---
#1 Interpretation EKG Interpretation Comments: Heart rate = 76 bpm, normal sinus rhythm, normal QRS interval, no STEMI. EKG and rhythm strip interpreted by me at 2027
[2021-05-10] MEDS ORDERED: Alum Hydro/Mag Hydro/Simeth XS 15 ML, Lidocaine 2% 5 ML PO ONE ×2 (20:51)
--- NOTE | 2021-05-10 20:55 | EDM.PDOC ---
ED HPI GENERAL MEDICAL PROBLEM - General Chief Complaint: Respiratory Problem Stated Complaint: ASTHMA, SOB, CHEST PAIN Time Seen by Provider: 05/10/21 20:20 Source of Information: Reports: Patient History Limitations: Reports: No Limitations - History of Present Illness INITIAL COMMENTS - FREE TEXT/NARRATIVE: HISTORY AND PHYSICAL: History of present illness: Patient is a 26-year-old male who presents to the emergency department with complaints of having difficulty breathing and chest pain for around 2 weeks. The patient was in the emergency department on 05/09/2021 and was worked up for complaints of trouble breathing for the last few weeks. The work-up on 1111 which included an EKG, blood work, a chest x-ray was entirely normal. During that timeframe the patient was not found to have any cough or wheezing. No increased work of breathing was noted at that time. The patient was informed that this was most likely due to stress or anxiety and that he should keep his appointment with Dr. Ho. Today the patient is stating that he feels like his asthma is acting up and he has been using his rescue inhaler more than 4 times a day and after the first day and no longer helped with the chest pain or the shortness of breath. The patient denies a persistent cough but says he has an intermittent cough. The patient states that he has been otherwise healthy. Patient denies any fever, chills, headache, change in vision, syncope or near syncope. Denies any abdominal pain, nausea, vomiting, diarrhea, constipation or dysuria. Has not noted any blood in urine or stool. Patient has been eating and drinking appropriately. Review of systems: As per history of present illness and below otherwise all systems reviewed and negative. Past medical history: As per history of present illness and as reviewed below otherwise noncontributory. Surgical history: As per history of present illness and as reviewed below otherwise noncontributory. Social history: See social history for further information Family history: As per history of present illness and as reviewed below otherwise noncontributory. Physical exam: General: Well developed and well nourished. Alert and orientated x 3. Nontoxic in appearance and in no acute distress. Vital signs are stable and have been reviewed by me. Nursing notes were reviewed. HEENT: Atraumatic, normocephalic, pupils equal and reactive bilaterally, negative for conjunctival pallor or scleral icterus, mucous membranes moist, TMs normal bilaterally, throat clear, neck supple, nontender, trachea midline. No drooling or trismus noted. No meningeal signs. No hot potato voice noted. Lungs: Clear to auscultation bilaterally. No wheezes, rales, or rhonchi. Chest nontender. Normal work of breathing, no accessory muscles used. Heart: S1S2, regular rate and rhythm without overt murmur, gallops, or rubs. No JVD. No peripheral edema Abdomen: Soft, nondistended, nontender. Normoactive bowel sounds. Negative for masses or costovertebral tenderness. Skin: Intact, warm, dry. No lesions or rashes noted. Hematologic: No petechiae or purpra. Mucosa appropriate color and normal nail bed color and refill. Extremities: Atraumatic, moves all extremities per self without difficulty or deficits, negative for cords or calf pain. Neurovascular unremarkable. Neuro: Awake, alert, oriented. Cranial nerves II through XII unremarkable. Cerebellum unremarkable. Motor and sensory unremarkable throughout. Exam nonfocal. Psychiatric: Mood and affect are appropriate. Normal thought process. Answering questions appropriately. Notes: *This patient was seen and evaluated during the 2019 SARS-CoV-2 novel coronavirus pandemic period. Community viral transmission is ongoing at time of this encounter and the emergency department is operating under pandemic response procedures. As stated above the patient is a 26-year-old that presents to the emergency room with complaints of shortness of breath and chest pain which he associates with his asthma. He states his rescue inhaler is not working. The patient states that he has some kind of cardiac condition but is unsure of the name. The patient does have anxiety, but states this is not anxiety. He has denied any kind of lifting or trauma that could cause the pain. The patient does not have any work of breathing. His lung sounds were clear. This does not appear to be an asthma exacerbation. He states the pain is midsternal and is able to point to it with one finger. We attempted a GI cocktail as it could be GERD. The GI cocktail did not work. After examination I told the patient it was more likely that it was muscular in nature and gave him a shot of Toradol and Norflex. I will prescribe Norflex 100 mg p.o. twice daily for 10 days as needed for the p atient. I instructed him to follow-up with his primary care. The patient was agreeable with this discharge plan. I have talked with the patient about today's findings, in addition to providing specific details for plan of care. Reassessment at the time of disposition demonstrates that the patient is in no acute distress. The patient is stable for discharge, counseling was provided and we discussed in great detail signs and symptoms that would prompt them to return to the Emergency Department. Medication, follow up and supportive care measures were reviewed and discussed. Voices understanding and is agreeable to plan of care. Denies any further questions or concerns at this time. Therapeutics: Toradol, Norflex Prescription: Norflex 100 mg p.o. twice daily x10 days as needed Impression: Chest wall pain Plan: 1. You were evaluated today on an emergent basis. Your complaints of continued chest pains with feelings of shortness of breath was evaluated with an exam and review of last night's chest x-ray. Your lung sounds are free of wheezes and are clear. Your chest x-ray was normal. Your respiratory rate is normal. You did not have a cough while you were in the emergency department. As you are using a rescue inhaler and this is not helping you do not feel that you are having an exacerbation of your asthma. We attempted a GI cocktail that did not help. This is most likely muscular in nature. As such I am giving you an injection of Toradol and Norflex in the emergency department. I have prescribed Norflex 100 mg by mouth twice a day for 10 days. I called your medication to [facility] pharmacy. You can pick this up between the hours of noon and 5 tomorrow. Like we talked about this can take a few days to get into your system. Be sure to follow-up with your primary care and talk with them about possible further work-up or referral to ged instructor. 2. You can alternate Tylenol and ibuprofen as needed for pain and fever management. 3. We encourage you to follow up with your primary care provider and/or recommended specialist in the next few days for re-evaluation and further care/management. 4. If your symptoms should worsen, new symptoms develop or any of the signs and symptoms we discussed should arise please return to the emergency room or call 911 (if needed). Definitive disposition and diagnosis as appropriate pending reevaluation and review of above. Left Upper Arm Pain Score (Numeric/FACES): 4 - Related Data Allergies Allergy/AdvReac Type Severity Reaction Status Date / Time diphenhydramine Allergy affects my Verified 05/09/21 17:00 [From Marisol] glaucoma Home Meds: Home Meds Albuterol Sulfate [Albuterol Sulfate HFA] 2 puff INH ASDIRECTED PRN 10/02/20 [History] Ascorbic Acid [Vitamin C] 1,000 mg PO DAILY 10/02/20 [History] Cholecalciferol (Vitamin D3) [Vitamin D3] 3,000 units PO DAILY 10/02/20 [History] Esomeprazole Magnesium 40 mg PO DAILY PRN 10/02/20 [History] Fluticasone Propionate [Flovent HFA] 2 inhalation INH BID 10/02/20 [History] Gabapentin [Neurontin] 300 mg PO TID 10/02/20 [History] Primidone 250 mg PO DAILY 10/02/20 [History] Sertraline HCl 150 mg PO BEDTIME 10/02/20 [History] Vitamin B Complex 1 tab PO DAILY 10/02/20 [History] Zinc 50 mg PO DAILY 10/02/20 [History] traZODone HCl [Trazodone HCl] 50 mg PO BEDTIME 10/02/20 [History] ziprasidone HCL [Ziprasidone HCl] 60 mg PO BID 10/02/20 [History] Prazosin [Minpress] 4 mg PO DAILY 03/24/21 [History] Prazosin [Minpress] 6 mg PO BEDTIME 03/24/21 [History] Topiramate [Topamax] 75 mg PO BEDTIME 03/24/21 [History] busPIRone [Buspar] 1.5 tab PO DAILY 05/09/21 [History] Orphenadrine [Norflex] 100 mg PO BID PRN 10 Days #20 tab 05/10/21 [Rx] Past Medical History HEENT History: Reports: Glaucoma Other HEENT History: wears glasses Cardiovascular History: Reports: Congenital Septal Defect, Other (See Below) Other Cardiovascular History: palpatations Respiratory History: Reports: Asthma, Sleep Apnea Other Respiratory History: does not use CPAP (unable to afford) Gastrointestinal History: Reports: GERD Genitourinary History: Reports: None Musculoskeletal History: Reports: Arthritis Neurological History: Reports: Other (See Below) Other Neuro History: tremors Psychiatric History: Reports: Anxiety, PTSD, Schizophrenia, Other (See Below) Other Psychiatric History: PSTD, Psycosocialproblems, Endocrine/Metabolic History: Reports: None Hematologic History: Reports: Blood Transfusion(s) Immunologic History: Reports: None Oncologic (Cancer) History: Reports: None Dermatologic History: Reports: Eczema - Infectious Disease History Infectious Disease History: Reports: None - Past Surgical History Head Surgeries/Procedures: Reports: None HEENT Surgical History: Reports: Adenoidectomy, Eye Surgery Cardiovascular Surgical History: Reports: Other (See Below) Other Cardiovascular Surgeries/Procedures: repair of atrial septal defect in 1997 Respiratory Surgical History: Reports: None GI Surgical History: Reports: Hernia, Inguinal Male Surgical History: Reports: None Endocrine Surgical History: Reports: None Neurological Surgical History: Reports: None Musculoskeletal Surgical History: Reports: None Oncologic Surgical History: Reports: None Dermatological Surgical History: Reports: None Social & Family History - Family History Family Medical History: No Pertinent Family History - Caffeine Use Caffeine Use: Reports: None ED ROS GENERAL - Review of Systems Review Of Systems: Comprehensive ROS is negative, except as noted in HPI. ED EXAM, GENERAL - Physical Exam Exam: See Below (See dictation) Course - Vital Signs Last Recorded V/S: Last Vital Signs Temp 98.3 F 05/10/21 20:39 Pulse 76 05/10/21 21:52 Resp 16 05/10/21 21:52 BP 112/68 05/10/21 21:52 Pulse Ox 98 05/10/21 21:52 - Orders/Labs/Meds Meds: Medications Discontinued Medications Generic Name Dose Route Start Last Admin Trade Name Joan PRN Reason Stop Dose Admin Alum Glen Arm/Mag Glen Arm/Simeth XS 0 ml 05/10/21 20:51 05/10/21 20:56 15 ml/ Lidocaine HCl 5 ml PO 05/10/21 20:52 1 each ONETIME ONE Administration Ketorolac Tromethamine 60 mg 05/10/21 21:14 05/10/21 21:20 Ketorolac 60 Mg/2 Ml Sdv IM 05/10/21 21:15 60 mg ONETIME ONE Administration Orphenadrine Citrate 60 mg 05/10/21 21:14 05/10/21 21:19 Orphenadrine 60 Mg/2 Ml Inj IM 05/10/21 21:15 60 mg ONETIME ONE Administration Departure - Departure Time of Disposition: 21:21 Disposition: Home, Self-Care 01 Condition: Good Clinical Impression: Chest wall pain - Discharge Information *PRESCRIPTION DRUG MONITORING PROGRAM REVIEWED*: Not Applicable *COPY OF PRESCRIPTION DRUG MONITORING REPORT IN PATIENT RUBY: Not Applicable Prescriptions: Orphenadrine [Norflex] 100 mg PO BID PRN 10 Days #20 tab PRN Reason: Muscle Spasm - Painful Instructions: Nonspecific Chest Pain, Adult, [id number] Referrals: Marcus Ho MD [Primary Care Provider] - Forms: ED Department Discharge Additional Instructions: The following information is given to patients seen in the emergency department who are being discharged to home. This information is to outline your options for follow-up care. We provide all patients seen in our emergency department with a follow-up referral. The need for follow-up, as well as the timing and circumstances, are variable depending upon the specifics of your emergency department visit. If you don't have a primary care physician on staff, we will provide you with a referral. We always advise you to contact your personal physician following an emergency department visit to inform them of the circumstance of the visit and for follow-up with them and/or the need for any referrals to a consulting specialist. The emergency department will also refer you to a specialist when appropriate. This referral assures that you have the opportunity for follow-up care with a specialist. All of these measure are taken in an effort to provide you with optimal care, which includes your follow-up. Under all circumstances we always encourage you to contact your private physician who remains a resource for coordinating your care. When calling for follow-up care, please make the office aware that this follow-up is from your recent emergency room visit. If for any reason you are refused follow-up, please contact the [facility] Emergency Department at and asked to speak to the emergency department charge nurse. [facility] - [facility] [address] [place] [id number] [facility] [address] [place] [address] Plan: 1. You were evaluated today on an emergent basis. Your complaints of continued chest pains with feelings of shortness of breath was evaluated with an exam and review of last night's chest x-ray. Your lung sounds are free of wheezes and are clear. Your chest x-ray was normal. Your respiratory rate is normal. You did not have a cough while you were in the emergency department. As you are using a rescue inhaler and this is not helping you do not feel that you are having an exacerbation of your asthma. We attempted a GI cocktail that did not help. This is most likely muscular in nature. As such I am giving you an injection of Toradol and Norflex in the emergency department. I have prescribed Norflex 100 mg by mouth twice a day for 10 days. I called your medication to [facility] pharmacy. You can pick this up between the hours of noon and 5 tomorrow. Like we talked about this can take a few days to get into your system. Be sure to follow-up with your primary care and talk with them about possible further work-up or referral to ged instructor. 2. You can alternate Tylenol and ibuprofen as needed for pain and fever management. 3. We encourage you to follow up with your primary care provider and/or recommended specialist in the next few days for re-evaluation and further care/management. 4. If your symptoms should worsen, new symptoms develop or any of the signs and symptoms we discussed should arise please return to the emergency room or call 911 (if needed). Sepsis Event Note (ED) - Evaluation Sepsis Screening Result: No Definite Risk
[2021-05-10] MEDS ORDERED: Orphenadrine 60 MG/2 ML Inj IM ONE (21:14)
[2021-05-10] MEDS ORDERED: Ketorolac 60 MG/2 ML SDV IM ONE (21:14)
== END 2021-05-10 21:46 | disposition home or self-care (01) ==
LOC: MW.ED 19:08
DX: R07.89 Other chest pain (principal); J45.909 Unspecified asthma, uncomplicated; K21.9 Gastro-esophageal reflux disease without esophagitis; Z88.8 Allergy status to other drugs, medicaments and biological substances; Z79.899 Other long term (current) drug therapy
CPT/HCPCS: 93005; 96372; 99284; A9270; J1885; J2360

== ENCOUNTER 2021-05-17 23:00 | Emergency (ER) | payer MEDICARE, MEDICAID ==
[2021-05-17] MEDS ORDERED: Ketorolac 15 MG/ML SDV IVPUSH STA (23:31)
[2021-05-17 23:49] LABS: BLOOD UREA NITROGEN,BUN 24 mg/dL (7.0-18.0); CARBON DIOXIDE,CO2 24.4 mmol/L (21.0-32.0); CHLORIDE,CL 107 mmol/L (98-107); GLUCOSE RANDOM 85 mg/dL (74-106); SODIUM,NA 140 mmol/L (136-148)
[2021-05-17] MEDS ORDERED: Iopamidol 755 MG/ML 500 ML Multipack Bottle IVPUSH ONE (23:55)
--- NOTE | 2021-05-18 00:15 | EDM.PDOC ---
ED HPI GENERAL MEDICAL PROBLEM - General Chief Complaint: Chest Pain Stated Complaint: SOB CHEST PAINS SHAKING VOMITING Time Seen by Provider: 05/17/21 23:36 - History of Present Illness INITIAL COMMENTS - FREE TEXT/NARRATIVE: HISTORY AND PHYSICAL: History of present illness: Is a 26-year-old gentleman with history significant for an ASD repair, PTSD, who presents ER today secondary to chest discomfort for approximate 1 to 2 weeks that is been evaluated in the ED as well as by his primary care doctor and told that it was chest wall pain/costochondritis. Patient reports that today he had associated nausea and vomiting this morning with it. Patient reports that has been tolerating p.o. solids and liquids throughout the course of the day and had a big dinner without any vomiting. Patient denies any recent fevers, shakes, chills, diarrhea, dysuria, frequency, urgency, abdominal pain. Patient reports pain increases with inspiration and cough. Patient denies any exertional component to the chest pain. Patient has any history of DVT or PE. Patient has any history of hypertension, liver, lung, kidney problems. Patient has any tobacco alcohol or drugs. Review of systems: As per history of present illness and below otherwise all systems reviewed and negative. Past medical history: As per history of present illness and as reviewed below otherwise noncontributory. Surgical history: As per history of present illness and as reviewed below otherwise noncontributory. Social history: No reported history of drug abuse. Family history: As per history of present illness and as reviewed below otherwise no ncontributory. Physical exam: This patient was seen and evaluated during the 2019 SARS-CoV-2 novel coronavirus pandemic period. Community viral transmission is ongoing at time of this encounter and the emergency department is operating under pandemic response procedures. Constitutional: Patient is oriented to person, place, and time. Appears well- developed and well-nourished. No distress. HEENT: Moist mucous membranes Head: Normocephalic and atraumatic Eyes: Right eye exhibits no discharge. Left eye exhibits no discharge. No scleral icterus Neck: Normal range of motion. No tracheal deviation present. Cardiovascular: Normal rate and regular rhythm. Pulmonary: Effort normal, no respiratory distress. Abdominal: No distention Musculoskeletal: Normal range of motion Neurologic: Alert and oriented to person, place and time. Skin: [place], warm and dry. Psychiatric: Normal mood and affect. Behavior is normal. Judgment and thought content normal. Nursing note and vital signs have been reviewed Patient with reproducible tenderness palpation to his anterior chest wall. Diagnostics: Chest Xray: Normal cardiac silhouette No infiltrates or effusions identified. No PTX No evidence of acute bony fracture. As interpreted by ER MD: Cedrick EKG May 17, 2021 11:06 PM EKG: As interpreted by ER physician: Cedrick: Nonspecific ST-T wave abnormalities Normal axis No evidence of ST elevation CO Normal sinus rhythm heart rate of 85 CBC, CMP, troponin within normal limits. D-dimer elevated Therapeutics: [] Toradol 15 mg IV, Assessment and plan: 26-year-old gentleman who presents ER today complaining of chest pain x1 to 2 weeks that has not improved. Patient came to the ER today reportedly because he started having episodes of vomiting although reports that the vomiting was this morning and he was able to eat lunch and dinner without any difficulty. Patient is unable to verbalize to me why he did not come in sooner when he had the vomiting rather than wait all day prior to coming in and was able to tolerate p.o. solids and liquids for lunch and dinner. Patient's labs in the ED were unremarkable. Patient's chest x-ray was unremarkable. Patient's D-dimer was elevated so CTA of his chest was ordered. Patient reports that he has had his Covid vaccine and does not want to have a Covid test here in the ED. CTA did not show any evidence of pulmonary embolism however there is questionable infiltrate. Patient to get started on Zithromax and doxycycline for outpatient treatment of possible pneumonia. Patient will be instructed to follow-up with his doctor next week for reevaluation. Reassessment at the time of disposition demonstrates that the patient is in no acute distress. The patient has remained stable throughout the entire ED visit and is without objective evidence for acute process requiring urgent intervention or hospitalization. The patient is stable for discharge, counseling is provided as documented above, discussed symptomatic treatment and specific conditions for return. I have spoken with the patient/caregiver and discussed todays findings, in addition to providing specific details for the plan of care. Questions are answered and there is agreement with the plan. Definitive disposition and diagnosis as appropriate pending reevaluation and review of above. Chest Pain Score (Numeric/FACES): 9 - Related Data Allergies Allergy/AdvReac Type Severity Reaction Status Date / Time diphenhydramine Allergy affects my Verified 05/17/21 23:09 [From Benadryl] glaucoma Home Meds: Home Meds Albuterol Sulfate [Albuterol Sulfate HFA] 2 puff INH ASDIRECTED PRN 10/02/20 [History] Ascorbic Acid [Vitamin C] 1,000 mg PO DAILY 10/02/20 [History] Cholecalciferol (Vitamin D3) [Vitamin D3] 3,000 units PO DAILY 10/02/20 [History] Esomeprazole Magnesium 40 mg PO DAILY PRN 10/02/20 [History] Fluticasone Propionate [Flovent HFA] 2 inhalation INH BID 10/02/20 [History] Gabapentin [Neurontin] 300 mg PO TID 10/02/20 [History] Primidone 250 mg PO DAILY 10/02/20 [History] Sertraline HCl 150 mg PO BEDTIME 10/02/20 [History] Vitamin B Complex 1 tab PO DAILY 10/02/20 [History] Zinc 50 mg PO DAILY 10/02/20 [History] traZODone HCl [Trazodone HCl] 50 mg PO BEDTIME 10/02/20 [History] ziprasidone HCL [Ziprasidone HCl] 60 mg PO BID 10/02/20 [History] Prazosin [Minpress] 4 mg PO DAILY 03/24/21 [History] Prazosin [Minpress] 6 mg PO BEDTIME 03/24/21 [History] Topiramate [Topamax] 75 mg PO BEDTIME 03/24/21 [History] busPIRone [Buspar] 1.5 tab PO DAILY 05/09/21 [History] Orphenadrine [Norflex] 100 mg PO BID PRN 10 Days #20 tab 05/10/21 [Rx] Azithromycin [Zithromax] 250 mg PO DAILY #4 tablet 05/18/21 [Rx] Doxycycline [Vibramycin] 100 mg PO BID #20 cap 05/18/21 [Rx] Past Medical History HEENT History: Reports: Glaucoma Other HEENT History: wears glasses Cardiovascular History: Reports: Congenital Septal Defect, Other (See Below) Other Cardiovascular History: palpatations Respiratory History: Reports: Asthma, Sleep Apnea Other Respiratory History: does not use CPAP (unable to afford) Gastrointestinal History: Reports: GERD Genitourinary History: Reports: None Musculoskeletal History: Reports: Arthritis Neurological History: Reports: Other (See Below) Other Neuro History: tremors Psychiatric History: Reports: Anxiety, PTSD, Schizophrenia, Other (See Below) Other Psychiatric History: PSTD, Psycosocialproblems, Endocrine/Metabolic History: Reports: None Hematologic History: Reports: Blood Transfusion(s) Immunologic History: Reports: None Oncologic (Cancer) History: Reports: None Dermatologic History: Reports: Eczema - Infectious Disease History Infectious Disease History: Reports: None - Past Surgical History Head Surgeries/Procedures: Reports: None HEENT Surgical History: Reports: Adenoidectomy, Eye Surgery Cardiovascular Surgical History: Reports: Other (See Below) Other Cardiovascular Surgeries/Procedures: repair of atrial septal defect in 1997 Respiratory Surgical History: Reports: None GI Surgical History: Reports: Hernia, Inguinal Male Surgical History: Reports: None Endocrine Surgical History: Reports: None Neurological Surgical History: Reports: None Musculoskeletal Surgical History: Reports: None Oncologic Surgical History: Reports: None Dermatological Surgical History: Reports: None Social & Family History - Family History Family Medical History: No Pertinent Family History - Tobacco Use Second Hand Smoke Exposure: No - Caffeine Use Caffeine Use: Reports: None - Recreational Drug Use Recreational Drug Use: No ED ROS GENERAL - Review of Systems Review Of Systems: See Below ED EXAM, GENERAL - Physical Exam Exam: See Below Course - Vital Signs Last Recorded V/S: Last Vital Signs Temp 97.8 F 05/17/21 23:07 Pulse 86 05/18/21 00:43 Resp 18 05/18/21 00:43 BP 113/76 05/18/21 00:43 Pulse Ox 97 05/18/21 00:43 - Orders/Labs/Meds Orders: Active Orders 24 hr Category Date Time Status Chest 2V [CR] Stat Exams 05/17/21 23:59 Ordered Azithromycin [Zithromax] Med 05/18/21 00:52 Once 500 mg PO Q24H ONE Doxycycline [Vibramycin] Med 05/18/21 00:53 Once 100 mg PO ONETIME ONE Medication Orders Azithromycin (Azithromycin 250 Mg Tab) 500 mg PO Q24H ONE Stop: 05/18/21 00:53 Doxycycline Hyclate (Doxycycline 100 Mg Cap) 100 mg PO ONETIME ONE Stop: 05/18/21 00:54 Labs: Laboratory Tests 05/17/21 05/17/21 05/17/21 Range/Units 23:05 23:05 23:05 WBC 13.93 H (4.0-11.0) K/uL RBC 4.83 (4.50-5.90) M/uL Hgb 14.2 (13.0-17.0) g/dL Hct 42.2 (38.0-50.0) % MCV 87.4 (80.0-98.0) fL MCH 29.4 (27.0-32.0) pg MCHC 33.6 (31.0-37.0) g/dL RDW Std Deviation 49.2 (28.0-62.0) fl RDW Coeff of Gee 15 (11.0-15.0) % Plt Count 198 (150-400) K/uL MPV 11.20 (7.40-12.00) fL Neut % (Auto) 60.8 (48.0-80.0) % Lymph % (Auto) 29.6 (16.0-40.0) % Iron % (Auto) 8.0 (0.0-15.0) % Eos % (Auto) 1.5 (0.0-7.0) % Baso % (Auto) 0.1 (0.0-1.5) % Neut # (Auto) 8.5 H (1.4-5.7) K/uL Lymph # (Auto) 4.1 H (0.6-2.4) K/uL Iron # (Auto) 1.1 H (0.0-0.8) K/uL Eos # (Auto) 0.2 (0.0-0.7) K/uL Baso # (Auto) 0.0 (0.0-0.1) K/uL Nucleated RBC % 0.0 /100WBC Nucleated RBCs # 0 K/uL D-Dimer, Quantitative 1.10 H (0.0-0.50) mg/L FEU Sodium 140 (136-148) mmol/L Potassium 4.0 (3.5-5.1) mmol/L Chloride 107 (98-107) mmol/L Carbon Dioxide 24.4 (21.0-32.0) mmol/L BUN 24 H (7.0-18.0) mg/dL Creatinine 1.2 (0.8-1.3) mg/dL Est Cr Clr Drug Dosing 70.22 mL/min Estimated GFR (MDRD) > 60.0 ml/min Glucose 85 (74-106) mg/dL Calcium 8.7 (8.5-10.1) mg/dL Total Bilirubin 0.2 (0.2-1.0) mg/dL AST 22 (15-37) IU/L ALT 58 (14-63) IU/L Alkaline Phosphatase 77 (46-116) U/L Troponin I < 0.050 (0.000-0.056) ng/mL Total Protein 7.7 (6.4-8.2) g/dL Albumin 3.8 (3.4-5.0) g/dL Globulin 3.9 (2.6-4.0) g/dL Albumin/Globulin Ratio 1.0 (0.9-1.6) Meds: Medications Generic Name Dose Route Start Last Admin Trade Name Freq PRN Reason Stop Dose Admin Azithromycin 500 mg 05/18/21 00:52 Azithromycin 250 Mg Tab PO 05/18/21 00:53 Q24H ONE Doxycycline Hyclate 100 mg 05/18/21 00:53 Doxycycline 100 Mg Cap PO 05/18/21 00:54 ONETIME ONE Discontinued Medications Generic Name Dose Route Start Last Admin Trade Name Freq PRN Reason Stop Dose Admin Iopamidol 100 ml 05/17/21 23:55 05/18/21 00:28 Iopamidol 755 Mg/Ml 500 Ml Multipack Bottle IVPUSH 05/17/21 23:56 100 ml ONETIME ONE Administration Ketorolac Tromethamine 15 mg 05/17/21 23:31 05/17/21 23:35 Ketorolac 15 Mg/Ml Sdv IVPUSH 05/17/21 23:32 15 mg Q6H STA Administration Departure - Departure Time of Disposition: 00:54 Disposition: Home, Self-Care 01 Condition: Good Clinical Impression: Pneumonia, Chest pain - Discharge Information Instructions: Community-Acquired Pneumonia, Adult Referrals: Marcus Ho MD [Primary Care Provider] - Forms: ED Department Discharge Additional Instructions: You were seen and evaluated in the ER today secondary to chest pain. Although your chest x-ray was normal, the CT scan of your chest shows that he might have an early pneumonia. You will get started on 2 antibiotics to make sure that we cover you for any bacterial pneumonia that might have developed. Please take the antibiotics completely make sure you make an appointment see your family doctor next week for reevaluation. The following information is given to patients seen in the emergency department who are being discharged to home. This information is to outline your options for follow-up care. We provide all patients seen in our emergency department with a follow-up referral. The need for follow-up, as well as the timing and circumstances, are variable depending upon the specifics of your emergency department visit. If you don't have a primary care physician on staff, we will provide you with a referral. We always advise you to contact your personal physician following an emergency department visit to inform them of the circumstance of the visit and for follow-up with them and/or the need for any referrals to a consulting specialist. The emergency department will also refer you to a specialist when appropriate. This referral assures that you have the opportunity for follow-up care with a specialist. All of these measure are taken in an effort to provide you with optimal care, which includes your follow-up. Under all circumstances we always encourage you to contact your private physician who remains a resource for coordinating your care. When calling for follow-up care, please make the office aware that this follow-up is from your recent emergency room visit. If for any reason you are refused follow-up, please contact the [facility] Emergency Department at and asked to speak to the emergency department charge nurse. [facility] - Primary Care [address] [place] [id number] [place] [address] Sepsis Event Note (ED) - Evaluation Sepsis Screening Result: No Definite Risk - Focused Exam Vital Signs: Vital Signs Temp Pulse Resp BP Pulse Ox 05/18/21 00:43 86 18 113/76 97 05/17/21 23:07 97.8 F 93 20 130/90 99 - My Orders Last 24 Hours: My Active Orders 05/17/21 23:59 Chest 2V [CR] Stat 05/18/21 00:52 Azithromycin [Zithromax] 500 mg PO Q24H ONE 05/18/21 00:53 Doxycycline [Vibramycin] 100 mg PO ONETIME ONE - Assessment/Plan Last 24 Hours: My Active Orders 05/17/21 23:59 Chest 2V [CR] Stat 05/18/21 00:52 Azithromycin [Zithromax] 500 mg PO Q24H ONE 05/18/21 00:53 Doxycycline [Vibramycin] 100 mg PO ONETIME ONE
--- NOTE | 2021-05-18 00:42 | CR ---
INDICATION: Chest pain. COMPARISON: 05/09/2021 FINDINGS: PA and lateral views of the chest were obtained. The lungs remain clear. No focal or diffuse infiltrates are present. The heart remains normal in size. Again seen are fine sternal wires from median sternotomy, probably from the period. The mediastinum is otherwise normal in appearance. The osseous structures are otherwise normal in appearance for the patient`s age. IMPRESSION: No active disease seen in the chest. Dictated by David Stewart MD @ 05/18/2021 12:40:30 AM (Electronically Signed)
--- NOTE | 2021-05-18 00:46 | CT ---
INDICATION: Chest pain with elevated D-dimer. COMPARISON: Chest radiograph from today. TECHNIQUE: CT examination of the chest was performed with the uneventful intravenous administration of 100 cc of Isovue-300 while 1 and 1.5 mm thick axial sections were obtained through the pulmonary arteries. Please note that all CT scans at this facility use dose modulation, iterative reconstruction, and/or weight-based dosing when appropriate to reduce radiation dose to as low as reasonably achievable. FINDINGS: : There is no sign of pulmonary embolism, with normal enhancement and branching of the pulmonary arteries. There is mild tree-in-bud infiltrate in the lateral aspect of the left upper lobe consistent with mild left upper lobe pneumonia. Additional mild patchy alveolar infiltrate is seen in the posterior lingula in the infrahilar region. There is mild patchy alveolar infiltrate in the lateral basilar segment of the left lower lobe as well. There is no sign of mediastinal or hilar mass or adenopathy. The heart is normal in appearance for the patient`s age. Again seen are fine sternal wires from median sternotomy, probably performed during the period. A few surgical clips are seen in the superior retrosternal region. There is age appropriate appearance of the thoracic aorta and ascending great vessels. There is no sign of supraclavicular or axillary mass or adenopathy. The visualized superior liver, spleen, pancreas, kidneys, and adrenals are normal in appearance. The osseous structures are normal in appearance for the patient`s age. IMPRESSION: No sign of pulmonary embolism. Minimal early pneumonia in the left upper and left lower lobes as described above. Previous median sternotomy. Please note that all CT scans at this facility use dose modulation, iterative reconstruction, and/or weight-based dosing when appropriate to reduce radiation dose to as low as reasonably achievable. Dictated by David Stewart MD @ 05/18/2021 12:45:32 AM (Electronically Signed)
[2021-05-18] MEDS ORDERED: Azithromycin 250 MG Tab PO ONE (00:52)
[2021-05-18] MEDS ORDERED: Doxycycline 100 MG Cap PO ONE (00:53)
== END 2021-05-18 01:13 | disposition home or self-care (01) ==
LOC: MW.ED 23:00
DX: J18.9 Pneumonia, unspecified organism (principal); K21.9 Gastro-esophageal reflux disease without esophagitis; Z79.899 Other long term (current) drug therapy; Z88.8 Allergy status to other drugs, medicaments and biological substances
CPT/HCPCS: 36415; 71046; 71275; 80053; 84484; 85025; 85379; 93005; 96374; 99285; A9270; J1885; Q9967

== ENCOUNTER 2021-05-24 18:13 | Emergency (ER) | payer MEDICARE, MEDICAID ==
--- NOTE | 2021-05-24 18:15 | EDM.PDOC ---
ED HPI GENERAL MEDICAL PROBLEM - General Stated Complaint: CHEST PAINS, SOB Time Seen by Provider: 05/24/21 18:14 Source of Information: Reports: Patient History Limitations: Reports: No Limitations - History of Present Illness INITIAL COMMENTS - FREE TEXT/NARRATIVE: 26-year-old male past medical history PTSD, psychiatric problems, asthma, history of ASD repair presents for shortness of breath. Patient has been seen in the emergency department multiple times recently for similar symptoms. He was initially worked up with normal labs and chest x-ray. It was thought that perhaps his symptoms were related to anxiety. He came back recently and had CT imaging of the chest which revealed possible early pneumonia but no evidence of pulmonary embolism. He was started on antibiotics at this time. This was 7 days ago. - Related Data Allergies Allergy/AdvReac Type Severity Reaction Status Date / Time diphenhydramine Allergy affects my Verified 05/17/21 23:09 [From Marisol] glaucoma Home Meds: Home Meds Albuterol Sulfate [Albuterol Sulfate HFA] 2 puff INH ASDIRECTED PRN 10/02/20 [History] Ascorbic Acid [Vitamin C] 1,000 mg PO DAILY 10/02/20 [History] Cholecalciferol (Vitamin D3) [Vitamin D3] 3,000 units PO DAILY 10/02/20 [History] Esomeprazole Magnesium 40 mg PO DAILY PRN 10/02/20 [History] Fluticasone Propionate [Flovent HFA] 2 inhalation INH BID 10/02/20 [History] Gabapentin [Neurontin] 300 mg PO TID 10/02/20 [History] Primidone 250 mg PO DAILY 10/02/20 [History] Sertraline HCl 150 mg PO BEDTIME 10/02/20 [History] Vitamin B Complex 1 tab PO DAILY 10/02/20 [History] Zinc 50 mg PO DAILY 10/02/20 [History] traZODone HCl [Trazodone HCl] 50 mg PO BEDTIME 10/02/20 [History] ziprasidone HCL [Ziprasidone HCl] 60 mg PO BID 10/02/20 [History] Prazosin [Minpress] 4 mg PO DAILY 03/24/21 [History] Prazosin [Minpress] 6 mg PO BEDTIME 03/24/21 [History] Topiramate [Topamax] 75 mg PO BEDTIME 03/24/21 [History] busPIRone [Buspar] 1.5 tab PO DAILY 05/09/21 [History] Orphenadrine [Norflex] 100 mg PO BID PRN 10 Days #20 tab 05/10/21 [Rx] Azithromycin [Zithromax] 250 mg PO DAILY #4 tablet 05/18/21 [Rx] Doxycycline [Vibramycin] 100 mg PO BID #20 cap 05/18/21 [Rx] Past Medical History HEENT History: Reports: Glaucoma Other HEENT History: wears glasses Cardiovascular History: Reports: Congenital Septal Defect, Other (See Below) Other Cardiovascular History: palpatations Respiratory History: Reports: Asthma, Sleep Apnea Other Respiratory History: does not use CPAP (unable to afford) Gastrointestinal History: Reports: GERD Genitourinary History: Reports: None Musculoskeletal History: Reports: Arthritis Neurological History: Reports: Other (See Below) Other Neuro History: tremors Psychiatric History: Reports: Anxiety, PTSD, Schizophrenia, Other (See Below) Other Psychiatric History: PSTD, Psycosocialproblems, Endocrine/Metabolic History: Reports: None Hematologic History: Reports: Blood Transfusion(s) Immunologic History: Reports: None Oncologic (Cancer) History: Reports: None Dermatologic History: Reports: Eczema - Infectious Disease History Infectious Disease History: Reports: None - Past Surgical History Head Surgeries/Procedures: Reports: None HEENT Surgical History: Reports: Adenoidectomy, Eye Surgery Cardiovascular Surgical History: Reports: Other (See Below) Other Cardiovascular Surgeries/Procedures: repair of atrial septal defect in 1997 Respiratory Surgical History: Reports: None GI Surgical History: Reports: Hernia, Inguinal Male Surgical History: Reports: None Endocrine Surgical History: Reports: None Neurological Surgical History: Reports: None Musculoskeletal Surgical History: Reports: None Oncologic Surgical History: Reports: None Dermatological Surgical History: Reports: None Social & Family History - Family History Family Medical History: No Pertinent Family History - Caffeine Use Caffeine Use: Reports: None
--- NOTE | 2021-05-24 18:43 | PCM.EKG ---
#1 Interpretation EKG Date: 05/24/21 Time: 18:36 Rhythm: NSR Rate (Beats/Min): 73 [place]: Normal P-Wave: Present QRS: Normal ST-T: Normal QT: Normal ID/PQ Interval: 153 EKG Interpretation Comments: normal EKG, no acute ischemic changes
[2021-05-24] MEDS ORDERED: predniSONE 20 MG Tab PO ONE (19:23)
[2021-05-24] MEDS ORDERED: ALPRAZolam 0.5 MG Tab PO ONE (19:24)
--- NOTE | 2021-05-24 19:27 | EDM.PDOC ---
ED HPI GENERAL MEDICAL PROBLEM - General Chief Complaint: Chest Pain Stated Complaint: CHEST PAINS, SOB Time Seen by Provider: 05/24/21 18:14 - History of Present Illness INITIAL COMMENTS - FREE TEXT/NARRATIVE: History of present illness: [] Patient related chest pain or shortness of breath. He has had every 2 to 3 weeks. Has been in multiple times. He said EKGs troponins CT angio of the chest showing possible infiltrate but no pulmonary embolus and he has continued to have pain. He has a PTSD dog and takes medicine for PTSD and anxiety. He also takes medicine for asthma. He is not treated for diabetes hypertension or cholesterol. He does have a family history of coronary artery disease but he does not smoke. 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 He is vaccinated for Covid but with mild are not. Patient does had that he has had chills for the last 2 or 3 days. He is short of breath with exertion and has a vague pain in the center of his chest. This not unlike what he said with the previous 3 or more visits. Most recently saw his family doctor and because of the possibility that his asthma was causing the shortness of breath and chest pain he was placed on a Medrol Dosepak. When he took the 6 pills on the first day he was better but as he tapers he is gotten progressive symptoms. He has an essential tremor. Review of systems: As per history of present illness and below otherwise all systems reviewed and negative. Past medical history: As per history of present illness and as reviewed below otherwise noncontributory. Surgical history: As per history of present illness and as reviewed below otherwise noncontributory. Social history: No reported history of drug or alcohol abuse. Family history: As per history of present illness and as reviewed below otherwise noncontributory. Physical exam: Constitutional - well developed, well-nourished and in no acute distress HEENT - normocephalic, no evidence of trauma - external nose and mouth normal - no mass in neck and no JVD - mucosae moist EYES - full EOM, PERRL, no icterus - no evidence of inflammation, injection, or drainage Respiratory - no respiratory distress, equal bilateral expansion, lungs clear to auscultation and no abnormal lung sounds Cardiovascular - Regular Rhythm with S1 and S2 appreciated and no murmur, gallop or rub. GI - abdomen soft without distension or organomegaly - normal bowel sounds - no guard or rebound Musculoskeletal no gross deformity of long bones or joints - no tenderness, swelling or edema Neurologic -coarse tremor of his extremities at rest. Tremor makes his speech a little dysarthric. Alert and oriented times four - CN II-XII grossly intact - motor sensory and coordination symmetrically normal Psychiatric - appropriate mood and affect with normal thought content Hematologic - No petechiae or purpura - mucosa appropriate color and sclera not pale - normal nail bed color and refill Integument - no rash or evidence of trauma - normal turgor Diagnostics: [] Therapeutics: [] Impression: [] Plan: [] Definitive disposition and diagnosis as appropriate pending reevaluation and review of above. - Related Data Allergies Allergy/AdvReac Type Severity Reaction Status Date / Time diphenhydramine Allergy affects my Verified 05/24/21 18:47 [From Benadryl] glaucoma Home Meds: Home Meds Albuterol Sulfate [Albuterol Sulfate HFA] 2 puff INH ASDIRECTED PRN 10/02/20 [History] Ascorbic Acid [Vitamin C] 1,000 mg PO DAILY 10/02/20 [History] Cholecalciferol (Vitamin D3) [Vitamin D3] 3,000 units PO DAILY 10/02/20 [History] Esomeprazole Magnesium 40 mg PO DAILY PRN 10/02/20 [History] Fluticasone Propionate [Flovent HFA] 2 inhalation INH BID 10/02/20 [History] Gabapentin [Neurontin] 300 mg PO TID 10/02/20 [History] Primidone 250 mg PO DAILY 10/02/20 [History] Sertraline HCl 150 mg PO BEDTIME 10/02/20 [History] Vitamin B Complex 1 tab PO DAILY 10/02/20 [History] Zinc 50 mg PO DAILY 10/02/20 [History] traZODone HCl [Trazodone HCl] 50 mg PO BEDTIME 10/02/20 [History] ziprasidone HCL [Ziprasidone HCl] 60 mg PO BID 10/02/20 [History] Prazosin [Minpress] 4 mg PO DAILY 03/24/21 [History] Prazosin [Minpress] 6 mg PO BEDTIME 03/24/21 [History] Topiramate [Topamax] 75 mg PO BEDTIME 03/24/21 [History] busPIRone [Buspar] 1.5 tab PO DAILY 05/09/21 [History] Orphenadrine [Norflex] 100 mg PO BID PRN 10 Days #20 tab 05/10/21 [Rx] Clobetasol [Clobetasol Propionate 0.05%] 15 gm TOP BID 05/24/21 [History] Doxycycline [Doxycycline Monohydrate] 100 mg PO BID 05/24/21 [History] hydrOXYzine HCL [Hydroxyzine HCl] 25 mg PO TID 05/24/21 [History] methylPREDNISolone [Medrol Dose Pack] 2 mg PO ASDIRECTED 05/24/21 [History] predniSONE [Prednisone] 60 mg PO DAILY #21 tablet 05/24/21 [Rx] Past Medical History HEENT History: Reports: Glaucoma Other HEENT History: wears glasses Cardiovascular History: Reports: Congenital Septal Defect, Other (See Below) Other Cardiovascular History: palpatations Respiratory History: Reports: Asthma, Sleep Apnea Other Respiratory History: does not use CPAP (unable to afford) Gastrointestinal History: Reports: GERD Genitourinary History: Reports: None Musculoskeletal History: Reports: Arthritis Neurological History: Reports: Other (See Below) Other Neuro History: tremors Psychiatric History: Reports: Anxiety, PTSD, Schizophrenia, Other (See Below) Other Psychiatric History: PSTD, Psycosocialproblems, Endocrine/Metabolic History: Reports: None Hematologic History: Reports: Blood Transfusion(s) Immunologic History: Reports: None Oncologic (Cancer) History: Reports: None Dermatologic History: Reports: Eczema - Infectious Disease History Infectious Disease History: Reports: None - Past Surgical History Head Surgeries/Procedures: Reports: None HEENT Surgical History: Reports: Adenoidectomy, Eye Surgery Cardiovascular Surgical History: Reports: Other (See Below) Other Cardiovascular Surgeries/Procedures: repair of atrial septal defect in 1997 Respiratory Surgical History: Reports: None GI Surgical History: Reports: Hernia, Inguinal Male Surgical History: Reports: None Endocrine Surgical History: Reports: None Neurological Surgical History: Reports: None Musculoskeletal Surgical History: Reports: None Oncologic Surgical History: Reports: None Dermatological Surgical History: Reports: None Social & Family History - Family History Family Medical History: No Pertinent Family History - Tobacco Use Tobacco Use Status *Q: Never Tobacco User Second Hand Smoke Exposure: No - Caffeine Use Caffeine Use: Reports: Coffee - Recreational Drug Use Recreational Drug Use: No ED ROS GENERAL - Review of Systems Review Of Systems: Comprehensive ROS is negative, except as noted in HPI. ED EXAM, GENERAL - Physical Exam Exam: See Below Free Text/Narrative:: My physical exam is in the HPI #1 Interpretation EKG Interpretation Comments: KG done 05/24/2021 at 6:36 PM shows sinus rhythm heart rate 73 OH interval 153 axis I 22 probable left atrial enlargement probable right ventricular hypertrophy compared to 05/17/2021 no change impression no acute injury Course - Vital Signs Last Recorded V/S: Last Vital Signs Temp 36.7 C 05/24/21 18:56 Pulse 84 05/24/21 18:56 Resp 16 05/24/21 18:56 BP 101/76 05/24/21 18:56 Pulse Ox 97 05/24/21 18:56 - Orders/Labs/Meds Labs: Laboratory Tests 05/24/21 Range/Units 18:53 Influenza Type A RNA NEGATIVE (NEGATIVE) Influenza Type B RNA NEGATIVE (NEGATIVE) SARS-CoV-2 RNA (CODEY) NEGATIVE (NEGATIVE) Meds: Medications Discontinued Medications Generic Name Dose Route Start Last Admin Trade Name Freq PRN Reason Stop Dose Admin Alprazolam 0.5 mg 05/24/21 19:24 05/24/21 19:43 Alprazolam 0.5 Mg Tab PO 05/24/21 19:25 0.5 mg NOW ONE Administration Prednisone 60 mg 05/24/21 19:23 05/24/21 19:43 Prednisone 20 Mg Tab PO 05/24/21 19:24 60 mg ONETIME ONE Administration Departure - Departure Time of Disposition: 20:52 Disposition: Home, Self-Care 01 Condition: Good Clinical Impression: Dyspnea, Chest pain - Discharge Information Prescriptions: predniSONE [Prednisone] 60 mg PO DAILY #21 tablet Instructions: Shortness of Breath, Adult, [id number], Nonspecific Chest Pain, Adult Referrals: Marcus Ho MD [Primary Care Provider] - Forms: ED Department Discharge Additional Instructions: Your medicine was sent to [facility] They are open from 12-5 tomorrow [facility] [address] [place] [id number] [place] [address] The following information is given to patients seen in the emergency department who are being discharged to home. This information is to outline your options for follow-up care. We provide all patients seen in our emergency department with a follow-up referral. The need for follow-up, as well as the timing and circumstances, are variable depending upon the specifics of your emergency department visit. If you don't have a primary care physician on staff, we will provide you with a referral. We always advise you to contact your personal physician following an emergency department visit to inform them of the circumstance of the visit and for follow-up with them and/or the need for any referrals to a consulting specialist. The emergency department will also refer you to a specialist when appropriate. This referral assures that you have the opportunity for follow-up care with a specialist. All of these measure are taken in an effort to provide you with optimal care, which includes your follow-up. Under all circumstances we always encourage you to contact your private physician who remains a resource for coordinating your care. When calling for follow-up care, please make the office aware that this follow-up is from your r ecent emergency room visit. If for any reason you are refused follow-up, please contact the [facility] Emergency Department at and asked to speak to the emergency department charge nurse. Sepsis Event Note (ED) - Evaluation Sepsis Screening Result: No Definite Risk - Focused Exam Vital Signs: Vital Signs Temp Pulse Resp BP Pulse Ox 05/24/21 18:56 36.7 C 84 16 101/76 97
[2021-05-24 20:37] LABS: CORONAVIRUS COVID-19 NAA NEGATIVE (NEGATIVE); INFLUENZA A NAA NEGATIVE (NEGATIVE); INFLUENZA B NAA NEGATIVE (NEGATIVE)
== END 2021-05-24 21:06 | disposition home or self-care (01) ==
LOC: MW.ED 18:13
DX: R06.00 Dyspnea, unspecified (principal); R07.9 Chest pain, unspecified; J45.909 Unspecified asthma, uncomplicated; K21.9 Gastro-esophageal reflux disease without esophagitis; M19.90 Unspecified osteoarthritis, unspecified site; Z88.8 Allergy status to other drugs, medicaments and biological substances; Z79.899 Other long term (current) drug therapy; Z20.822 Contact with and (suspected) exposure to COVID-19
CPT/HCPCS: 0240U; 93005; 99285; A9270

== ENCOUNTER 2021-06-13 15:48 | Emergency (ER) | payer MEDICARE, MEDICAID ==
--- NOTE | 2021-06-13 16:42 | EDM.PDOC ---
ED HPI GENERAL MEDICAL PROBLEM - General Chief Complaint: ENT Problem Stated Complaint: TEMPORARY BLINDNESS, MUSCLE SPASM Time Seen by Provider: 06/13/21 16:15 - History of Present Illness INITIAL COMMENTS - FREE TEXT/NARRATIVE: 26-year-old male with a history of PTSD and conversion disorder as well as a history of glaucoma presenting with intermittent muscle spasms as well as intermittent temporary blindness. Patient has had trouble with transitory intermittent blindness that is been attributed to his conversion disorder since September. Has been increasing in frequency over the last week. The transitory blindness lasts 4 to 6 minutes at a time and he has had a few episodes today will assume over the last few days. No clear trigger. No associated headache or other symptoms that reliably come with the transitory blindness which then resolved spontaneously. He spoke to his psychiatric nurse practitioner a couple days ago and told her about this but she did not want to increase additional medication at this time as she had just recently increased medication at the beginning of this week. He also describes trouble with intermittent double vision no eye pain no face pain no fevers or chills no neck pain chest pain shortness of breath or other symptoms. On my assessment he does using his phone without difficulty. - Related Data Allergies Allergy/AdvReac Type Severity Reaction Status Date / Time diphenhydramine Allergy affects my Verified 06/13/21 15:55 [From Benadryl] glaucoma Home Meds: Home Meds Albuterol Sulfate [Albuterol Sulfate HFA] 2 puff INH ASDIRECTED PRN 10/02/20 [History] Ascorbic Acid [Vitamin C] 1,000 mg PO DAILY 10/02/20 [History] Cholecalciferol (Vitamin D3) [Vitamin D3] 3,000 units PO DAILY 10/02/20 [Hist ory] Gabapentin [Neurontin] 300 mg PO TID 10/02/20 [History] Primidone 250 mg PO DAILY 10/02/20 [History] Sertraline HCl 150 mg PO BEDTIME 10/02/20 [History] Vitamin B Complex 1 tab PO DAILY 10/02/20 [History] Zinc 50 mg PO DAILY 10/02/20 [History] traZODone HCl [Trazodone HCl] 50 mg PO BEDTIME 10/02/20 [History] ziprasidone HCL [Ziprasidone HCl] 60 mg PO BID 10/02/20 [History] Prazosin [Minpress] 4 mg PO DAILY 03/24/21 [History] Prazosin [Minpress] 6 mg PO BEDTIME 03/24/21 [History] Topiramate [Topamax] 75 mg PO BEDTIME 03/24/21 [History] busPIRone [Buspar] 1.5 tab PO DAILY 05/09/21 [History] Orphenadrine [Norflex] 100 mg PO BID PRN 10 Days #20 tab 05/10/21 [Rx] Clobetasol [Clobetasol Propionate 0.05%] 15 gm TOP BID 05/24/21 [History] hydrOXYzine HCL [Hydroxyzine HCl] 25 mg PO TID 05/24/21 [History] Budesonide [Pulmicort] 1 dose PO DAILY 06/13/21 [History] Desoximetasone 1 dose PO DAILY 06/13/21 [History] Montelukast [Singulair] 1 dose PO DAILY 06/13/21 [History] diazePAM [Valium] 2 mg PO TID PRN 4 Days #12 tab 06/13/21 [Rx] Past Medical History HEENT History: Reports: Glaucoma Other HEENT History: wears glasses Cardiovascular History: Reports: Congenital Septal Defect, Other (See Below) Other Cardiovascular History: palpatations Respiratory History: Reports: Asthma, Sleep Apnea Other Respiratory History: does not use CPAP (unable to afford) Gastrointestinal History: Reports: GERD Genitourinary History: Reports: None Musculoskeletal History: Reports: Arthritis Neurological History: Reports: Other (See Below) Other Neuro History: tremors Psychiatric History: Reports: Anxiety, PTSD, Schizophrenia, Other (See Below) Other Psychiatric History: PSTD, Psycosocialproblems, Endocrine/Metabolic History: Reports: None Hematologic History: Reports: Blood Transfusion(s) Immunologic History: Reports: None Oncologic (Cancer) History: Reports: None Dermatologic History: Reports: Eczema - Infectious Disease History Infectious Disease History: Reports: None - Past Surgical History Head Surgeries/Procedures: Reports: None HEENT Surgical History: Reports: Adenoidectomy, Eye Surgery Cardiovascular Surgical History: Reports: Other (See Below) Other Cardiovascular Surgeries/Procedures: repair of atrial septal defect in 1997 Respiratory Surgical History: Reports: None GI Surgical History: Reports: Hernia, Inguinal Male Surgical History: Reports: None Endocrine Surgical History: Reports: None Neurological Surgical History: Reports: None Musculoskeletal Surgical History: Reports: None Oncologic Surgical History: Reports: None Dermatological Surgical History: Reports: None Social & Family History - Family History Family Medical History: No Pertinent Family History - Tobacco Use Tobacco Use Status *Q: Never Tobacco User - Caffeine Use Caffeine Use: Reports: Coffee - Recreational Drug Use Recreational Drug Use: No ED ROS GENERAL - Review of Systems Review Of Systems: See Below Free Text/Narrative/Comment: General: No fever. Skin: No rash. Eyes: Per HPI ENT: No sore throat. Neck: No neck stiffness. Respiratory: No shortness of breath. Cardiac: No chest pain. Gastrointestinal: No nausea, vomiting or abdominal pain. Urinary: No dysuria. Musculoskeletal: Per HPI Neurologic: No headache. ED EXAM, GENERAL - Physical Exam Exam: See Below Free Text/Narrative:: General Appearance: No acute distress, appears comfortable HEENT: Normocephalic/atraumatic, sclera anicteric, mucous membranes moist, extraocular movements full and intact no nystagmus left pupil is misshapen which patient reports is baseline. Visual quan intact to confrontation no conjunctival injection no hyperemia normal lids and lashes bilaterally Neck: Normal range of motion Chest and Lungs: Bilateral breath sounds, clear to auscultation Cardiovascular: Regular rate and rhythm Abdomen: Soft, non-tender Back: Normal Musculoskeletal: No edema or tenderness Neurologic: Awake, alert, no obvious deficits, moving all extremities Psychiatric: Appropriate, cooperative Course - Vital Signs Last Recorded V/S: Last Vital Signs Temp 98.5 F 06/13/21 16:03 Pulse 72 06/13/21 16:03 Resp 17 06/13/21 16:03 BP 104/66 06/13/21 16:03 Pulse Ox 98 06/13/21 16:03 Departure - Departure Time of Disposition: 16:39 Disposition: Home, Self-Care 01 Condition: Good Clinical Impression: Conversion disorder - Discharge Information *PRESCRIPTION DRUG MONITORING PROGRAM REVIEWED*: Not Applicable *COPY OF PRESCRIPTION DRUG MONITORING REPORT IN PATIENT RUBY: Not Applicable Prescriptions: diazePAM [Valium] 2 mg PO TID PRN 4 Days #12 tab PRN Reason: Muscle Spasm - Painful Instructions: Conversion Disorder Referrals: PCP,None [Primary Care Provider] - Forms: ED Department Discharge Additional Instructions: I do think your muscle spasms and transient blindness are related to your conversion disorder. I am hopeful that Valium will help with the symptoms. Because of the other medications that you are on we need to use a smaller dose of Valium. I encourage you to follow-up with your psychiatric nurse practitioner as well as the neurologist. The following information is given to patients seen in the emergency department who are being discharged to home. This information is to outline your options for follow-up care. We provide all patients seen in our emergency department with a follow-up referral. The need for follow-up, as well as the timing and circumstances, are variable depending upon the specifics of your emergency department visit. If you don't have a primary care physician on staff, we will provide you with a referral. We always advise you to contact your personal physician following an emergency department visit to inform them of the circumstance of the visit and for follow-up with them and/or the need for any referrals to a consulting specialist. The emergency department will also refer you to a specialist when appropriate. This referral assures that you have the opportunity for follow-up care with a specialist. All of these measure are taken in an effort to provide you with optimal care, which includes your follow-up. Under all circumstances we always encourage you to contact your private physician who remains a resource for coordinating your care. When calling for follow-up care, please make the office aware that this follow-up is from your recent emergency room visit. If for any reason you are refused follow-up, please contact the [facility] Emergency Department at and asked to speak to the emergency department charge nurse. Sepsis Event Note (ED) - Evaluation Sepsis Screening Result: No Definite Risk - Focused Exam Vital Signs: Vital Signs Temp Pulse Resp BP Pulse Ox 06/13/21 16:03 98.5 F 72 17 104/66 98 - Assessment/Plan Assessment:: 26-year-old male presented with signs and symptoms that are most consistent with conversion disorder. The patient has no objective abnormal findings on exam beyond the chronic findings of the glaucoma in the left eye. His new symptoms are not consistent with worsening glaucoma. No other consistent with stroke. Given the muscle spasms and the fact that he has had improvement with Ativan and other medications in the past we will trial small dose of Valium. We will keep the dose small given his other medications. Return precautions discussed and understood he will follow up with his primary doctors.
== END 2021-06-13 16:53 | disposition home or self-care (01) ==
LOC: MW.ED 15:48
DX: F44.4 Conversion disorder with motor symptom or deficit (principal); K21.9 Gastro-esophageal reflux disease without esophagitis; Z88.8 Allergy status to other drugs, medicaments and biological substances; Z79.899 Other long term (current) drug therapy
CPT/HCPCS: 99283

== ENCOUNTER 2021-06-27 17:06 | Emergency (ER) | payer MEDICARE, MEDICAID ==
[2021-06-27] MEDS ORDERED: Ketorolac 15 MG/ML SDV IM STA (19:22)
[2021-06-27] MEDS ORDERED: Lidocaine 5% 700 MG Patch TOP ONE (19:23)
[2021-06-27] MEDS ORDERED: Orphenadrine 60 MG/2 ML Inj IM ONE (19:23)
--- NOTE | 2021-06-27 19:29 | EDM.PDOC ---
ED HPI GENERAL MEDICAL PROBLEM - General Chief Complaint: Back Pain or Injury Stated Complaint: SEVERE BACK PAIN Time Seen by Provider: 06/27/21 19:14 - History of Present Illness INITIAL COMMENTS - FREE TEXT/NARRATIVE: HISTORY AND PHYSICAL: History of present illness: This is a 26-year-old gentleman who presents ER today secondary to lower back pain for 2 to 3 weeks. Patient reports that he has already seen his doctor and has been taking ibuprofen, Flexeril, Valium, and is taken [place] which had been prescribed for a pilonidal cyst over the last couple weeks. Patient reports that over the last couple days the pain has been unrelieved with his ibuprofen. Patient denies any recent fevers, shakes, chills, nausea, vomiting, diarrhea, dysuria, frequency, urgency, melena, bright red blood per rectum, hematuria. Patient ports the pain is constant and exacerbated with rotating his back. Patient reports that he purchased a back brace so that he can use it at work. 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 Patient denies any weakness to his upper or lower extremities. Patient has any loss of bowel or bladder function. Patient has any paresthesias to his perineal region. Review of systems: As per history of present illness and below otherwise all systems reviewed and negative. Past medical history: As per history of present illness and as reviewed below otherwise noncontributory. Surgical history: As per history of present illness and as reviewed below otherwise noncontributory. Social history: No reported history of drug abuse. Family history: As per history of present illness and as reviewed below otherwise noncontributory. Physical exam: This patient was seen and evaluated during the 2019 SARS-CoV-2 novel coronavirus pandemic period. Community viral transmission is ongoing at time of this encounter and the emergency department is operating under pandemic response procedures. Constitutional: Patient is oriented to person, place, and time. Appears well- developed and well-nourished. No distress. HEENT: Moist mucous membranes Head: Normocephalic and atraumatic Eyes: Right eye exhibits no discharge. Left eye exhibits no discharge. No scleral icterus Neck: Normal range of motion. No tracheal deviation present. Cardiovascular: Normal rate and regular rhythm. Pulmonary: Effort normal, no respiratory distress. Abdominal: No distention Musculoskeletal: Normal range of motion Neurologic: Alert and oriented to person, place and time. Skin: [place], warm and dry. Psychiatric: Normal mood and affect. Behavior is normal. Judgment and thought content normal. Nursing note and vital signs have been reviewed Neuro: A&Ox3. Cranial nerves II-XII grossly intact, 5/5 strength to bilateral upper and lower extremities, sensation intact to bilateral upper and lower extremities, no nystagmus, PERRLA, EOMI, normal speech, proprioception intact to bilateral lower extremities, normal finger to nose test, gait normal Patient has tenderness palpation to his lower back bilaterally. Patient has no point CT or L-spine tenderness to palpation. Patient is ambulating ED with a normal gait. Patient has a normal neurological exam. Patient has reproducible pain with rotation of his torso and flexion of his torso. Diagnostics: Urinalysis normal Therapeutics: During the course of the patient's evaluation for abdominal pain, kidney stone, pancreatitis, cholecystitis, diverticulitis, abdominal aortic aneurysm, myocardial infarction, ischemic bowel, ruptured peptic ulcer, ruptured viscus, UTI,and appendicitis as well as other causes of abdominal pain have been considered. Assessment and plan: 26-year-old gentleman who presents ER today secondary to acute exacerbation of his back pain. Patient reports that he has had back pain for several weeks that is currently being evaluated by his primary care physician and he is currently anticipating an appointment on July 14 with physical therapy to assist with his back pain. Patient currently has been optimized with outpatient medication and will need to continue with his physical therapy. In the ED, we will assist with his acute back pain with a shot of Toradol, Norflex, and we will write a prescription for lidocaine patch for him. Patient has been instructed regarding return precautions for any weakness numbness or tingling that he experiences to his lower extremities. Definitive disposition and diagnosis as appropriate pending reevaluation and review of above. Back Pain Score (Numeric/FACES): 7 - Related Data Allergies Allergy/AdvReac Type Severity Reaction Status Date / Time diphenhydramine Allergy affects my Verified 06/27/21 17:58 [From Benadryl] glaucoma Home Meds: Home Meds Albuterol Sulfate [Albuterol Sulfate HFA] 2 puff INH ASDIRECTED PRN 10/02/20 [History] Ascorbic Acid [Vitamin C] 1,000 mg PO DAILY 10/02/20 [History] Cholecalciferol (Vitamin D3) [Vitamin D3] 3,000 units PO DAILY 10/02/20 [History] Gabapentin [Neurontin] 300 mg PO TID 10/02/20 [History] Primidone 250 mg PO DAILY 10/02/20 [History] Sertraline HCl 150 mg PO BEDTIME 10/02/20 [History] traZODone HCl [Trazodone HCl] 50 mg PO BEDTIME 10/02/20 [History] ziprasidone HCL [Ziprasidone HCl] 60 mg PO BID 10/02/20 [History] Prazosin [Minpress] 4 mg PO BID 03/24/21 [History] Topiramate [Topamax] 100 mg PO BID 03/24/21 [History] busPIRone [Buspar] 1.5 tab PO DAILY 05/09/21 [History] Orphenadrine [Norflex] 100 mg PO BID PRN 10 Days #20 tab 05/10/21 [Rx] Clobetasol [Clobetasol Propionate 0.05%] 15 gm TOP BID 05/24/21 [History] hydrOXYzine HCL [Hydroxyzine HCl] 25 mg PO TID 05/24/21 [History] Budesonide [Pulmicort] 1 dose PO DAILY 06/13/21 [History] Desoximetasone 1 dose PO DAILY 06/13/21 [History] Montelukast [Singulair] 1 dose PO DAILY 06/13/21 [History] diazePAM [Valium] 2 mg PO TID PRN 4 Days #12 tab 06/13/21 [Rx] Budesonide/Formoterol [Symbicort 160-4.5 MCG] 06/27/21 [History] Fluticasone Propionate [Flonase] PRN 06/27/21 [History] Lidocaine 5% [Lidoderm 5%] 1 patch TOP DAILY PRN #7 patch 06/27/21 [Rx] atenoloL [Atenolol] 1 tab PO DAILY 06/27/21 [History] Past Medical History HEENT History: Reports: Glaucoma Other HEENT History: wears glasses Cardiovascular History: Reports: Congenital Septal Defect, Other (See Below) Other Cardiovascular History: palpatations Respiratory History: Reports: Asthma, Sleep Apnea Other Respiratory History: does not use CPAP (unable to afford) Gastrointestinal History: Reports: GERD Genitourinary History: Reports: None Musculoskeletal History: Reports: Arthritis, Back Pain, Chronic Neurological History: Reports: Other (See Below) Other Neuro History: tremors Psychiatric History: Reports: Anxiety, PTSD, Other (See Below) Other Psychiatric History: PSTD, Psycosocialproblems, pchizoaffective disorder Endocrine/Metabolic History: Reports: None Hematologic History: Reports: Blood Transfusion(s) Immunologic History: Reports: None Oncologic (Cancer) History: Reports: None Dermatologic History: Reports: Eczema - Infectious Disease History Infectious Disease History: Reports: Chicken Pox, Novel Coronavirus - Past Surgical History Head Surgeries/Procedures: Reports: None HEENT Surgical History: Reports: Adenoidectomy, Eye Surgery Cardiovascular Surgical History: Reports: Other (See Below) Other Cardiovascular Surgeries/Procedures: repair of atrial septal defect in 1997 Respiratory Surgical History: Reports: None GI Surgical History: Reports: Hernia, Inguinal Male Surgical History: Reports: None Endocrine Surgical History: Reports: None Neurological Surgical History: Reports: None Musculoskeletal Surgical History: Reports: None Oncologic Surgical History: Reports: None Dermatological Surgical History: Reports: None Social & Family History - Family History Family Medical History: No Pertinent Family History Cardiac: Reports: Heart Failure Dermatologic: Reports: None Oncologic: Reports: Liver - Caffeine Use Caffeine Use: Reports: None - Recreational Drug Use Recreational Drug Use: No ED ROS GENERAL - Review of Systems Review Of Systems: See Below ED EXAM, GENERAL - Physical Exam Exam: See Below Course - Vital Signs Last Recorded V/S: Last Vital Signs Temp 98.7 F 06/27/21 18:07 Pulse 83 06/27/21 18:07 Resp 19 06/27/21 18:07 BP 110/60 06/27/21 18:07 Pulse Ox 98 06/27/21 18:07 - Orders/Labs/Meds Orders: Active Orders 24 hr Category Date Time Status Lidocaine 5% [Lidoderm 5%] Med 06/27/21 19:23 Once 700 mg TOP ONETIME ONE Orphenadrine [Norflex] Med 06/27/21 19:23 Once 60 mg IM ONETIME ONE Medication Orders Lidocaine (Lidocaine 5% 700 Mg Patch) 700 mg TOP ONETIME ONE Stop: 06/27/21 19:24 Orphenadrine Citrate (Orphenadrine 60 Mg/2 Ml Inj) 60 mg IM ONETIME ONE Stop: 06/27/21 19:24 Labs: Laboratory Tests 06/27/21 Range/Units 18:36 Urine Color YELLOW Urine Appearance CLEAR Urine pH 6.0 (5.0-8.0) Ur Specific [place] >= 1.030 (1.001-1.035) Urine Protein NEGATIVE (NEGATIVE) mg/dL Urine Glucose (UA) NEGATIVE (NEGATIVE) mg/dL Urine Ketones NEGATIVE (NEGATIVE) mg/dL Urine Occult Blood NEGATIVE (NEGATIVE) Urine Nitrite NEGATIVE (NEGATIVE) Urine Bilirubin NEGATIVE (NEGATIVE) Urine Urobilinogen 0.2 (<2.0) EU/dL Ur Leukocyte Esterase NEGATIVE (NEGATIVE) Meds: Medications Generic Name Dose Route Start Last Admin Trade Name Freq PRN Reason Stop Dose Admin Lidocaine 700 mg 06/27/21 19:23 Lidocaine 5% 700 Mg Patch TOP 06/27/21 19:24 ONETIME ONE Orphenadrine Citrate 60 mg 06/27/21 19:23 Orphenadrine 60 Mg/2 Ml Inj IM 06/27/21 19:24 ONETIME ONE Discontinued Medications Generic Name Dose Route Start Last Admin Trade Name Freq PRN Reason Stop Dose Admin Ketorolac Tromethamine 30 mg 06/27/21 19:22 Ketorolac 15 Mg/Ml Sdv IM 06/27/21 19:23 Q6H STA Departure - Departure Time of Disposition: 19:27 Disposition: Home, Self-Care 01 Condition: Good Clinical Impression: Low back pain - Discharge Information Instructions: Muscle Strain, [id number], Acute Back Pain, Adult Additional Instructions: You were seen and evaluated in ER today secondary to flareup of your acute back pain. Please continue taking the medications that have been prescribed by your family physician. You can take up to 2400 mg of ibuprofen daily. You also be given a prescription for lidocaine patch to place on your back which might assist with your discomfort. You can continue taking your muscle relaxant and your Valium to help you with your pain and discomfort as well. Please keep your appointment with your physical therapist on the . You may want to talk to them or your family doctor regarding usage of the back brace. The following information is given to patients seen in the emergency department who are being discharged to home. This information is to outline your options for follow-up care. We provide all patients seen in our emergency department with a follow-up referral. The need for follow-up, as well as the timing and circumstances, are variable depending upon the specifics of your emergency department visit. If you don't have a primary care physician on staff, we will provide you with a referral. We always advise you to contact your personal physician following an emergency department visit to inform them of the circumstance of the visit and for follow-up with them and/or the need for any referrals to a consulting specialist. The emergency department will also refer you to a specialist when appropriate. This referral assures that you have the opportunity for follow-up care with a specialist. All of these measure are taken in an effort to provide you with optimal care, which includes your follow-up. Under all circumstances we always encourage you to contact your private physician who remains a resource for coordinating your care. When calling for follow-up care, please make the office aware that this follow-up is from your recent emergency room visit. If for any reason you are refused follow-up, please contact the [facility] Emergency Department at and asked to speak to the emergency department charge nurse. [facility] [address] [place] [address] [place] [address] Sepsis Event Note (ED) - Evaluation Sepsis Screening Result: No Definite Risk - Focused Exam Vital Signs: Vital Signs Temp Pulse Resp BP Pulse Ox 06/27/21 18:07 98.7 F 83 19 110/60 98 - My Orders Last 24 Hours: My Active Orders 06/27/21 19:23 Lidocaine 5% [Lidoderm 5%] 700 mg TOP ONETIME ONE Orphenadrine [Norflex] 60 mg IM ONETIME ONE - Assessment/Plan Last 24 Hours: My Active Orders 06/27/21 19:23 Lidocaine 5% [Lidoderm 5%] 700 mg TOP ONETIME ONE Orphenadrine [Norflex] 60 mg IM ONETIME ONE
== END 2021-06-27 20:17 | disposition home or self-care (01) ==
LOC: MW.ED 17:06
DX: M54.50 Low back pain, unspecified (principal); Z88.8 Allergy status to other drugs, medicaments and biological substances; Z79.899 Other long term (current) drug therapy
CPT/HCPCS: 81003; 96372; 99283; A9270; J1885

== ENCOUNTER 2021-06-28 15:00 | Emergency (ER) | payer MEDICARE, MEDICAID ==
--- NOTE | 2021-06-28 15:42 | EDM.PDOC ---
ED HPI GENERAL MEDICAL PROBLEM - General Chief Complaint: Back Pain or Injury Stated Complaint: BACK PAIN Time Seen by Provider: 06/28/21 15:11 Source of Information: Reports: Patient History Limitations: Reports: No Limitations - History of Present Illness INITIAL COMMENTS - FREE TEXT/NARRATIVE: HISTORY AND PHYSICAL: History of present illness: The patient is a 26-year-old male who presents to the emergency department with complaints of all over back pain that he has been dealing with for several weeks now. Patient was in the emergency room last night and received an prescription for lidocaine patches but he did not fill them as there are no pharmacies open on the holiday. The patient states that he has been taking his Norflex as prescribed. The patient is currently on Valium 2 mg 3 times daily. The patient also is on [place] at home. Patient states that he is still in pain. 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 The patient states since he has hurt his back he has just been lying down most of the time as this is the position he tolerates the best. Patient denies any fever, chills, headache, change in vision, syncope or near syncope. Denies any chest pain, shortness of breath or cough. Denies any abdominal pain, nausea, vomiting, diarrhea, constipation or dysuria. Has not noted any blood in urine or stool. Patient has been eating and drinking appropriately. Review of systems: As per history of present illness and below otherwise all systems reviewed and negative. Past medical history: As per history of present illness and as reviewed below otherwise noncontributory. Surgical history: As per history of present illness and as reviewed below otherwise noncontributory. Social history: See social history for further information Family history: As per history of present illness and as reviewed below otherwise noncontributory. Physical exam: General: Well developed and well nourished. Alert and orientated x 3. Nontoxic in appearance and in no acute distress. Vital signs are stable and have been reviewed by me. Nursing notes were reviewed. HEENT: Atraumatic, normocephalic, pupils equal and reactive bilaterally, negative for conjunctival pallor or scleral icterus, mucous membranes moist, TMs normal bilaterally, throat clear, neck supple, nontender, trachea midline. No drooling or trismus noted. No meningeal signs. No hot potato voice noted. Lungs: Clear to auscultation bilaterally. No wheezes, rales, or rhonchi. Chest nontender. Normal work of breathing, no accessory muscles used. Heart: S1S2, regular rate and rhythm without overt murmur, gallops, or rubs. No JVD. No peripheral edema Abdomen: Soft, nondistended, nontender. Normoactive bowel sounds. Negative for masses or costovertebral tenderness. Skin: Intact, warm, dry. No lesions or rashes noted. Hematologic: No petechiae or purpra. Mucosa appropriate color and normal nail bed color and refill. Back: Neck and back have no deformities, external skin changes, or signs of trauma. Curvature of the cervical, thoracic, and lumbar spine are within normal limits. Bony features of the shoulders and hips are of equal height bilaterally. Posture is upright, gait is smooth, steady, and within normal limits. No tenderness is noted on palpation of the spinous processes. Spinous processes are midline. Cervical, thoracic, and lumbar paraspinal muscles are not tender and are without spasm. No discomfort is noted with flexion, extension, and [id number] rotation of the cervical spine, full range of motion is noted. Full range of motion including flexion, extension, and [id number] rotation of the thoracic and lumbar spine are noted and without discomfort. Straight leg raise test is negative bilaterally. Sensation to the upper and lower extremities is normal bilaterally. No clonus is noted. [employer] strength is normal bilaterally. Dorsi/plantar flexion is normal bilaterally. Extremities: Atraumatic, moves all extremities per self without difficulty or deficits, negative for cords or calf pain. Neurovascular unremarkable. Neuro: Awake, alert, oriented. Cranial nerves II through XII unremarkable. Cerebellum unremarkable. Motor and sensory unremarkable throughout. Exam nonfocal. Psychiatric: Mood and affect are appropriate. Normal thought process. Answering questions appropriately. Notes: *This patient was seen and evaluated during the 2019 SARS-CoV-2 novel coronavirus pandemic period. Community viral transmission is ongoing at time of this encounter and the emergency department is operating under pandemic response procedures. As stated above the patient is a 26-year-old male presents to the emergency department for complaints of continued back pain. The patient was here yesterday and prescribed lidocaine patch unfortunately the pharmacies are closed for the holidays and he is unable to obtain the patches. The patient takes Valium 3 times a day and has been taking his Norflex. Patient also has been on [place]. The patient states that his pain is intolerable. For today's purposes we will do a CT of his back. Thoracic/lumbar spine CT IMPRESSION: 1. No acute abnormality in the thoracic spine. 2. No acute abnormality in the lumbar spine. 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 Struck to the patient do not take both medications at the same time. The patient is agreeable with this plan. I have talked with the patient about today's findings, in addition to providing specific details for plan of care. Reassessment at the time of disposition demonstrates that the patient is in no acute distress. The patient is stable for discharge, counseling was provided and we discussed in great detail signs and symptoms that would prompt them to return to the Emergency Department. Medication, follow up and supportive care measures were reviewed and discussed. Voices understanding and is agreeable to plan of care. Denies any further questions or concerns at this time. Diagnostics: Thoracic/lumbar CT Prescription: Flexeril 10 mg 1 p.o. twice daily as needed for muscle spasms, Robaxin 750 mg p.o. 4 times daily for 2 days Impression: Back pain/muscle spasm Plan: 1. You were evaluated today on an emergent basis. Your complaints about muscle pain was evaluated with an exam which showed the pain to be muscular in nature. A CT was done to evaluate any kind of spine abnormality. No abnormalities is noted. As the pharmacies are closed today and tomorrow I have prescribed you Flexeril 10 mg 1 p.o. twice a day as needed for muscle spasms. 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 You need to follow-up with your primary care in work out a treatment plan for your continued back pain. For instance you possibly need physical therapy. You were to develop numbness or tingling or lose control of your bowel or bladder or glues you are feeling in the repair in your area please return to the emergency department. 2. You can alternate Tylenol and ibuprofen as needed for pain and fever management. 3. We encourage you to follow up with your primary care provider and/or recommended specialist in the next few days for re-evaluation and further care/management. 4. If your symptoms should worsen, new symptoms develop or any of the signs and symptoms we discussed should arise please return to the emergency room or call 911 (if needed). Definitive disposition and diagnosis as appropriate pending reevaluation and review of above. back Pain Score (Numeric/FACES): 8 - Related Data Allergies Allergy/AdvReac Type Severity Reaction Status Date / Time diphenhydramine Allergy affects my Verified 06/27/21 17:58 [From Benadryl] glaucoma Home Meds: Home Meds Albuterol Sulfate [Albuterol Sulfate HFA] 2 puff INH ASDIRECTED PRN 10/02/20 [History] Ascorbic Acid [Vitamin C] 1,000 mg PO DAILY 10/02/20 [History] Cholecalciferol (Vitamin D3) [Vitamin D3] 3,000 units PO DAILY 10/02/20 [History] Gabapentin [Neurontin] 300 mg PO TID 10/02/20 [History] Primidone 250 mg PO DAILY 10/02/20 [History] Sertraline HCl 150 mg PO BEDTIME 10/02/20 [History] traZODone HCl [Trazodone HCl] 50 mg PO BEDTIME 10/02/20 [History] ziprasidone HCL [Ziprasidone HCl] 60 mg PO BID 10/02/20 [History] Prazosin [Minpress] 4 mg PO BID 03/24/21 [History] Topiramate [Topamax] 100 mg PO BID 03/24/21 [History] busPIRone [Buspar] 1.5 tab PO DAILY 05/09/21 [History] Orphenadrine [Norflex] 100 mg PO BID PRN 10 Days #20 tab 05/10/21 [Rx] Clobetasol [Clobetasol Propionate 0.05%] 15 gm TOP BID 05/24/21 [History] hydrOXYzine HCL [Hydroxyzine HCl] 25 mg PO TID 05/24/21 [History] Budesonide [Pulmicort] 1 dose PO DAILY 06/13/21 [History] Desoximetasone 1 dose PO DAILY 06/13/21 [History] Montelukast [Singulair] 1 dose PO DAILY 06/13/21 [History] diazePAM [Valium] 2 mg PO TID PRN 4 Days #12 tab 06/13/21 [Rx] Budesonide/Formoterol [Symbicort 160-4.5 MCG] 06/27/21 [History] Fluticasone Propionate [Flonase] PRN 06/27/21 [History] Lidocaine 5% [Lidoderm 5%] 1 patch TOP DAILY PRN #7 patch 06/27/21 [Rx] atenoloL [Atenolol] 1 tab PO DAILY 06/27/21 [History] methocarbamoL [Robaxin] 750 mg PO QID PRN 3 Days #12 tab 06/28/21 [Rx] Past Medical History HEENT History: Reports: Glaucoma Other HEENT History: wears glasses Cardiovascular History: Reports: Congenital Septal Defect, Other (See Below) Other Cardiovascular History: palpatations Respiratory History: Reports: Asthma, Sleep Apnea Other Respiratory History: does not use CPAP (unable to afford) Gastrointestinal History: Reports: GERD Genitourinary History: Reports: None Musculoskeletal History: Reports: Arthritis, Back Pain, Chronic Neurological History: Reports: Other (See Below) Other Neuro History: tremors Psychiatric History: Reports: Anxiety, PTSD, Other (See Below) Other Psychiatric History: PSTD, Psycosocialproblems, pchizoaffective disorder Endocrine/Metabolic History: Reports: None Hematologic History: Reports: Blood Transfusion(s) Immunologic History: Reports: None Oncologic (Cancer) History: Reports: None Dermatologic History: Reports: Eczema - Infectious Disease History Infectious Disease History: Reports: Chicken Pox, Novel Coronavirus - Past Surgical History Head Surgeries/Procedures: Reports: None HEENT Surgical History: Reports: Adenoidectomy, Eye Surgery Cardiovascular Surgical History: Reports: Other (See Below) Other Cardiovascular Surgeries/Procedures: repair of atrial septal defect in 1997 Respiratory Surgical History: Reports: None GI Surgical History: Reports: Hernia, Inguinal Male Surgical History: Reports: None Endocrine Surgical History: Reports: None Neurological Surgical History: Reports: None Musculoskeletal Surgical History: Reports: None Oncologic Surgical History: Reports: None Dermatological Surgical History: Reports: None Social & Family History - Family History Family Medical History: No Pertinent Family History Cardiac: Reports: Heart Failure Dermatologic: Reports: None Oncologic: Reports: Liver - Caffeine Use Caffeine Use: Reports: None ED ROS GENERAL - Review of Systems Review Of Systems: Comprehensive ROS is negative, except as noted in HPI. ED EXAM,LOWER BACK PAIN/INJURY - Physical Exam Exam: See Below (See dictation) Course - Vital Signs Last Recorded V/S: Last Vital Signs Temp 97.8 F 06/28/21 15:21 Pulse 71 06/28/21 17:12 Resp 18 06/28/21 15:21 BP 91/59 L 06/28/21 17:12 Pulse Ox 96 06/28/21 17:12 Departure - Departure Time of Disposition: 16:44 Disposition: Home, Self-Care 01 Condition: Good Clinical Impression: Muscle spasm Back pain Qualifiers: Back pain location: back pain in unspecified location Chronicity: chronic Back pain laterality: unspecified Qualified Code(s): M54.9 - Dorsalgia, unspecified - Discharge Information *PRESCRIPTION DRUG MONITORING PROGRAM REVIEWED*: No *COPY OF PRESCRIPTION DRUG MONITORING REPORT IN PATIENT RUBY: No Prescriptions: methocarbamoL [Robaxin] 750 mg PO QID PRN 3 Days #12 tab PRN Reason: Muscle Spasm - Painful Instructions: Managing Chronic Back Pain Referrals: PCP,None [Primary Care Provider] - Forms: ED Department Discharge Additional Instructions: The following information is given to patients seen in the emergency department who are being discharged to home. This information is to outline your options for follow-up care. We provide all patients seen in our emergency department with a follow-up referral. The need for follow-up, as well as the timing and circumstances, are variable depending upon the specifics of your emergency department visit. If you don't have a primary care physician on staff, we will provide you with a referral. We always advise you to contact your personal physician following an emergency department visit to inform them of the circumstance of the visit and for follow-up with them and/or the need for any referrals to a consulting specialist. The emergency department will also refer you to a specialist when appropriate. This referral assures that you have the opportunity for follow-up care with a specialist. All of these measure are taken in an effort to provide you with optimal care, which includes your follow-up. Under all circumstances we always encourage you to contact your private physician who remains a resource for coordinating your care. When calling for follow-up care, please make the office aware that this follow-up is from your recent emergency room visit. If for any reason you are refused follow-up, please contact the [facility] Emergency Department at and asked to speak to the emergency department charge nurse. [facility] [address] [place] [address] [facility] [address] [place] [id number] Plan: 1. You were evaluated today on an emergent basis. Your complaints about muscle pain was evaluated with an exam which showed the pain to be muscular in nature. A CT was done to evaluate any kind of spine abnormality. No abnormalities is noted. As the pharmacies are closed today and tomorrow I have prescribed you Flexeril 10 mg 1 p.o. twice a day as needed for muscle spasms. 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 You need to follow-up with your primary care in work out a treatment plan for your continued back pain. For instance you possibly need physical t herapy. You were to develop numbness or tingling or lose control of your bowel or bladder or glues you are feeling in the repair in your area please return to the emergency department. 2. You can alternate Tylenol and ibuprofen as needed for pain and fever management. 3. We encourage you to follow up with your primary care provider and/or recommended specialist in the next few days for re-evaluation and further care/management. 4. If your symptoms should worsen, new symptoms develop or any of the signs and symptoms we discussed should arise please return to the emergency room or call 911 (if needed). Sepsis Event Note (ED) - Evaluation Sepsis Screening Result: No Definite Risk - Focused Exam Vital Signs: Vital Signs Temp Pulse Resp BP Pulse Ox 06/28/21 17:12 71 91/59 L 96 06/28/21 15:21 97.8 F 77 18 114/60 96
--- NOTE | 2021-06-28 16:29 | CT ---
HISTORY: Back pain. TECHNIQUE: CT thoracic spine without contrast. CT lumbar spine without contrast. COMPARISON: None. FINDINGS: Five lumbar type vertebral bodies. Thoracic spine: No fracture. No subluxation. No disc height loss. Small Schmorl`s nodes at multiple thoracic vertebral bodies. Spinal canal and neural foramina are patent. No lytic or blastic bone lesions. Lumbar spine: No fracture. No subluxation. No disc height loss. Few small Schmorl`s nodes. Spinal canal and neural foramina are patent. Hemangioma in L2 vertebral body. Sacroiliac joints are maintained. Other: Sternal wires. Surgical clips in the anterior mediastinum. IMPRESSION: 1. No acute abnormality in the thoracic spine. 2. No acute abnormality in the lumbar spine. Please note that all CT scans at this facility use dose modulation, iterative reconstruction, and/or weight-based dosing when appropriate to reduce radiation dose to as low as reasonably achievable. Dictated by Alireza Mccollum MD @ 06/28/2021 4:29:13 PM (Electronically Signed)
== END 2021-06-28 17:13 | disposition home or self-care (01) ==
LOC: MW.ED 15:00
DX: M62.830 Muscle spasm of back (principal); Z88.8 Allergy status to other drugs, medicaments and biological substances; Z79.899 Other long term (current) drug therapy
CPT/HCPCS: 72128; 72128-26; 72131; 72131-26; 99283-25

== ENCOUNTER 2021-07-23 16:50 | Emergency (ER) | payer MEDICARE, MEDICAID ==
[2021-07-23] MEDS ORDERED: LORazepam 1 MG Tab PO ONE (18:16)
[2021-07-23 20:31] LABS: BLOOD UREA NITROGEN,BUN 22 mg/dL (7.0-18.0); CARBON DIOXIDE,CO2 21.4 mmol/L (21.0-32.0); CHLORIDE,CL 104 mmol/L (98-107); GLUCOSE RANDOM 96 mg/dL (74-106); POTASSIUM,K 3.6 mmol/L (3.5-5.1); SODIUM,NA 136 mmol/L (136-148)
== END 2021-07-23 21:05 | disposition home or self-care (01) ==
LOC: MW.ED 16:50
DX: M62.830 Muscle spasm of back (principal); F44.9 Dissociative and conversion disorder, unspecified; K21.9 Gastro-esophageal reflux disease without esophagitis; Z88.8 Allergy status to other drugs, medicaments and biological substances; Z86.16 Personal history of COVID-19
CPT/HCPCS: 36415; 80053; 81003; 82550; 85025; 99283; A9270

== ENCOUNTER 2021-07-24 20:20 | Emergency (ER) | payer MEDICARE, MEDICAID | END 2021-07-24 21:50 | disposition home or self-care (01) | LOC: MW.ED 20:20 | DX: F41.9 Anxiety disorder, unspecified (principal); Z88.8 Allergy status to other drugs, medicaments and biological substances | CPT/HCPCS: 99282 ==

== ENCOUNTER 2021-07-25 19:34 | Emergency (ER) | payer MEDICARE, MEDICAID | END 2021-07-26 02:09 | disposition home or self-care (01) | LOC: MW.ED 19:34 | DX: M62.838 Other muscle spasm (principal); K21.9 Gastro-esophageal reflux disease without esophagitis; Z88.8 Allergy status to other drugs, medicaments and biological substances; Z79.899 Other long term (current) drug therapy | CPT/HCPCS: 99283 ==

== ENCOUNTER 2021-07-31 20:44 | Emergency (ER) | payer MEDICARE, MEDICAID ==
[2021-08-01] MEDS ORDERED: ALPRAZolam 0.5 MG Tab PO ONE (00:54)
[2021-08-01] MEDS ORDERED: ALPRAZolam 0.5 MG Tab PO SCH (21:00)
== END 2021-08-01 01:09 | disposition home or self-care (01) ==
LOC: MW.ED 20:44
DX: F41.9 Anxiety disorder, unspecified (principal); J45.909 Unspecified asthma, uncomplicated; Z86.16 Personal history of COVID-19; Z88.8 Allergy status to other drugs, medicaments and biological substances; Z79.899 Other long term (current) drug therapy
CPT/HCPCS: 99283; A9270

== ENCOUNTER 2021-08-01 15:50 | Emergency (ER) | payer MEDICARE, MEDICAID ==
[2021-08-01 17:20] LABS: BLOOD UREA NITROGEN,BUN 24 mg/dL (7.0-18.0); CARBON DIOXIDE,CO2 23.1 mmol/L (21.0-32.0); CHLORIDE,CL 107 mmol/L (98-107); GLUCOSE RANDOM 97 mg/dL (74-106); POTASSIUM,K 3.7 mmol/L (3.5-5.1); SODIUM,NA 140 mmol/L (136-148)
== END 2021-08-01 17:38 | disposition home or self-care (01) ==
LOC: MW.ED 15:50
DX: F41.9 Anxiety disorder, unspecified (principal); J45.909 Unspecified asthma, uncomplicated; Z76.5 Malingerer [conscious simulation]; Z86.16 Personal history of COVID-19; Z88.8 Allergy status to other drugs, medicaments and biological substances; Z79.899 Other long term (current) drug therapy
CPT/HCPCS: 36415; 80053; 85025; 93005; 99283-25

== ENCOUNTER 2021-08-12 16:31 | Emergency (ER) | payer MEDICARE, MEDICAID ==
[2021-08-12 19:14] LABS: ACETAMINOPHEN <2.0 ug/mL; BLOOD UREA NITROGEN,BUN 28 mg/dL (7.0-18.0); CARBON DIOXIDE,CO2 24.9 mmol/L (21.0-32.0); CHLORIDE,CL 106 mmol/L (98-107); GLUCOSE RANDOM 91 mg/dL (74-106); POTASSIUM,K 4.1 mmol/L (3.5-5.1); SODIUM,NA 143 mmol/L (136-148)
== END 2021-08-12 18:59 | disposition home or self-care (01) ==
LOC: MW.ED 16:31
DX: T50.992A Poisoning by other drugs, medicaments and biological substances, intentional self-harm, initial encounter (principal); J45.909 Unspecified asthma, uncomplicated; K21.9 Gastro-esophageal reflux disease without esophagitis; Z88.8 Allergy status to other drugs, medicaments and biological substances; Z79.899 Other long term (current) drug therapy
CPT/HCPCS: 36415; 80053; 80143; 80179; 80305-QW; 80307; 81001; 83735; 85025; 93005; 99285-25

== ENCOUNTER 2021-08-20 15:22 | Emergency (ER) | payer MEDICARE, MEDICAID ==
[2021-08-20 16:31] LABS: BLOOD UREA NITROGEN,BUN 22 mg/dL (7.0-18.0); CARBON DIOXIDE,CO2 22.6 mmol/L (21.0-32.0); CHLORIDE,CL 106 mmol/L (98-107); GLUCOSE RANDOM 93 mg/dL (74-106); POTASSIUM,K 3.9 mmol/L (3.5-5.1); SODIUM,NA 141 mmol/L (136-148)
== END 2021-08-20 17:28 | disposition home or self-care (01) ==
LOC: MW.ED 15:22
DX: F44.4 Conversion disorder with motor symptom or deficit (principal); K21.9 Gastro-esophageal reflux disease without esophagitis; Z88.8 Allergy status to other drugs, medicaments and biological substances; Z79.899 Other long term (current) drug therapy
CPT/HCPCS: 36415; 80053; 84146; 85025; 93005; 99284-25

== ENCOUNTER 2021-11-01 20:10 | Emergency (ER) | payer MEDICARE, MEDICAID ==
[2021-11-01] MEDS ORDERED: Ketorolac 30 MG/ML SDV IM ONE (22:18)
[2021-11-01] MEDS ORDERED: Orphenadrine 60 MG/2 ML Inj IM ONE (22:18)
== END 2021-11-01 22:42 | disposition home or self-care (01) ==
LOC: MW.ED 20:10
DX: M62.838 Other muscle spasm (principal); K21.9 Gastro-esophageal reflux disease without esophagitis; Z88.8 Allergy status to other drugs, medicaments and biological substances
CPT/HCPCS: 96372; 99283; J1885; J2360

== ENCOUNTER 2021-12-20 17:00 | Emergency (ER) | payer MEDICARE, MEDICAID ==
[2021-12-20 18:54] LABS: CARBON DIOXIDE,CO2 25.5 mmol/L (21.0-32.0); POTASSIUM,K 3.8 mmol/L (3.5-5.1)
== END 2021-12-20 19:20 | disposition home or self-care (01) ==
LOC: MW.ED 17:00
DX: Z02.89 Encounter for other administrative examinations (principal)
CPT/HCPCS: 36415; 80048; 85025; 93005; 93010; 99282; 99283

== ENCOUNTER 2022-01-03 18:03 | Emergency (ER) | payer MEDICARE, MEDICAID ==
[2022-01-03] MEDS ORDERED: Cephalexin 500 MG Cap PO ONE (21:46)
[2022-01-03] MEDS ORDERED: Acetaminophen/HYDROcodone 325-5 MG Tab PO ONE (21:46)
== END 2022-01-03 22:47 | disposition home or self-care (01) ==
LOC: MW.ED 18:03
DX: L05.01 Pilonidal cyst with abscess (principal); Z88.8 Allergy status to other drugs, medicaments and biological substances; Z86.16 Personal history of COVID-19
CPT/HCPCS: 99282; A9270

== ENCOUNTER 2022-01-18 11:13 | Emergency (ER) | payer MEDICARE, MEDICAID ==
[2022-01-18 12:08] LABS: CARBON DIOXIDE,CO2 21.1 mmol/L (21.0-32.0); POTASSIUM,K 4.1 mmol/L (3.5-5.1)
== END 2022-01-18 12:30 | disposition home or self-care (01) ==
LOC: MW.ED 11:13
DX: G62.9 Polyneuropathy, unspecified (principal); Z88.8 Allergy status to other drugs, medicaments and biological substances; Z79.899 Other long term (current) drug therapy; Z86.16 Personal history of COVID-19
CPT/HCPCS: 36415; 80053; 85025; 99283

== ENCOUNTER 2022-02-01 15:22 | Emergency (ER) | payer MEDICARE, MEDICAID | END 2022-02-01 16:28 | disposition home or self-care (01) | LOC: MW.ED 15:22 | DX: G62.9 Polyneuropathy, unspecified (principal); Z88.8 Allergy status to other drugs, medicaments and biological substances; Z86.16 Personal history of COVID-19 | CPT/HCPCS: 99283 ==

== ENCOUNTER 2022-03-07 10:56 | Emergency (ER) | payer MEDICARE, MEDICAID | END 2022-03-07 11:46 | disposition home or self-care (01) | LOC: MW.ED 10:56 | DX: G24.01 Drug induced subacute dyskinesia (principal); K21.9 Gastro-esophageal reflux disease without esophagitis; F41.9 Anxiety disorder, unspecified; Z79.899 Other long term (current) drug therapy; Z88.8 Allergy status to other drugs, medicaments and biological substances | CPT/HCPCS: 99283 ==

== ENCOUNTER 2022-06-05 10:06 | Day surgery (SDC) | payer MEDICARE, MEDICAID ==
[~2022-06-05 10:06] MED LIST changes: -Acetaminophen 1,000 MG in Premix Bag 1 BAG IV ONE; +Propofol 200 MG/20 ML SDV ONE; -cefOXitin 2 GM in Premix Bag 1 BAG IV ONE
[2022-06-05] MEDS ORDERED: Midazolam 1 MG/ML 2 ML SDV ONE (11:30)
[2022-06-05] MEDS ORDERED: Propofol 200 MG/20 ML SDV ONE (11:55)
== END 2022-06-05 12:42 | disposition home or self-care (01) ==
LOC: MW.SDS 10:06
PROVIDERS: ATTEND Surgery
DX: K21.00 Gastro-esophageal reflux disease with esophagitis, without bleeding (principal); K29.70 Gastritis, unspecified, without bleeding; F41.9 Anxiety disorder, unspecified; F32.A Depression, unspecified; K21.9 Gastro-esophageal reflux disease without esophagitis; I10 Essential (primary) hypertension; J45.909 Unspecified asthma, uncomplicated; M19.90 Unspecified osteoarthritis, unspecified site; E03.9 Hypothyroidism, unspecified; G47.30 Sleep apnea, unspecified; Z88.8 Allergy status to other drugs, medicaments and biological substances; Z79.899 Other long term (current) drug therapy; Z79.890 Hormone replacement therapy; Z98.890 Other specified postprocedural states; Z90.49 Acquired absence of other specified parts of digestive tract; Z86.16 Personal history of COVID-19
CPT/HCPCS: 43239; 45380; J2250; J2704; J7120

== ENCOUNTER 2022-07-08 10:45 | Day surgery (SDC) | payer MEDICARE, MEDICAID ==
[~2022-07-08 10:45] MED LIST changes: +Acetaminophen 1,000 MG in Premix Bag 1 BAG IV SCH; +Albuterol 0.083% 2.5 MG/3 ML Neb Soln NEB PRN; +HYDROmorphone 1 MG/ML Syringe IVPUSH PRN; +Metoclopramide 10 MG/2 ML SDV IVPUSH PRN; +Morphine 2 MG/ML SYRINGE IVPUSH PRN; +Naloxone 0.4 MG/ML SDV IVPUSH PRN; +Ondansetron 4 MG/2 ML SDV IVPUSH PRN; +Pregabalin 75 MG Cap PO SCH; -Propofol 200 MG/20 ML SDV ONE; +cefOXitin 2 GM in Premix Bag 1 BAG IV SCH; +fentaNYL 50 MCG/ML SDV IVPUSH PRN
[2022-07-08] MEDS ORDERED: Propofol 200 MG/20 ML SDV ONE (12:17)
[2022-07-08] MEDS ORDERED: Sugammadex Sodium 200 MG/2 ML VIAL ONE (12:17)
[2022-07-08] MEDS ORDERED: fentaNYL 100 MCG/2 ML SDV ONE (12:17)
[2022-07-08] MEDS ORDERED: Ondansetron 4 MG/2 ML SDV ONE (12:17)
[2022-07-08] MEDS ORDERED: Dexamethasone 4 MG/ML 5 ML MDV ONE (12:17)
[2022-07-08] MEDS ORDERED: Lidocaine 2% 5 ML SDV ONE (12:17)
[2022-07-08] MEDS ORDERED: Ketorolac 30 MG/ML SDV ONE (12:17)
[2022-07-08] MEDS ORDERED: Morphine Sulfate 10mg/ml SDV ONE (12:17)
[2022-07-08] MEDS ORDERED: Rocuronium 100 MG/10 ML MDV ONE (12:19)
[2022-07-08] MEDS ORDERED: Lidocaine 1% 20 ML MDV ONE (12:27)
[2022-07-08] MEDS ORDERED: Bupivacaine 0.5% 30 ML SDV ONE (12:27)
[2022-07-08] MEDS ORDERED: Bupivacaine 0.25%/EPINEPHrine 1:200,000 10 ML SDV ONE (12:48)
[2022-07-08] MEDS ORDERED: cefOXitin 1 GM Vial ONE (12:59)
[2022-07-08] MEDS ORDERED: HYDROmorphone 2 MG/ML Syringe ONE (13:57)
== END 2022-07-08 16:40 | disposition home or self-care (01) ==
LOC: MW.SDS 10:45
PROVIDERS: ATTEND Surgery
DX: L05.91 Pilonidal cyst without abscess (principal); Z79.899 Other long term (current) drug therapy; Z79.890 Hormone replacement therapy; Z88.8 Allergy status to other drugs, medicaments and biological substances
CPT/HCPCS: 11772; A9270; J0131; J0694; J1100; J1170; J1885; J2270; J2405; J2704; J3010; J3490; J7120

== ENCOUNTER 2022-09-12 16:21 | Emergency (ER) | payer OTHER, MEDICAID, MEDICARE ==
[2022-09-12 17:35] LABS: BLOOD UREA NITROGEN,BUN 21 mg/dL (7.0-18.0); CARBON DIOXIDE,CO2 25.9 mmol/L (21.0-32.0); CHLORIDE,CL 104 mmol/L (98-107); GLUCOSE RANDOM 105 mg/dL (74-106); SODIUM,NA 138 mmol/L (136-148)
[2022-09-12 17:41] LABS: ESTIMATED GFR 86 mL/min (>60)
[2022-09-12] MEDS ORDERED: Orphenadrine 60 MG/2 ML Inj IM ONE (18:59)
== END 2022-09-12 19:22 | disposition home or self-care (01) ==
LOC: MW.ED 16:21
DX: S39.012A Strain of muscle, fascia and tendon of lower back, initial encounter (principal); E03.9 Hypothyroidism, unspecified; J45.909 Unspecified asthma, uncomplicated; K21.9 Gastro-esophageal reflux disease without esophagitis; Z91.011 Allergy to milk products; Z88.8 Allergy status to other drugs, medicaments and biological substances; Z86.16 Personal history of COVID-19; Z79.899 Other long term (current) drug therapy
CPT/HCPCS: 36415; 80053; 85025; 96372; 99283; J2360

== ENCOUNTER 2022-09-26 08:46 | Emergency (ER) | payer OTHER, MEDICAID, MEDICARE | END 2022-09-26 12:09 | disposition home or self-care (01) | LOC: MW.ED 08:46 | DX: M62.830 Muscle spasm of back (principal); M54.9 Dorsalgia, unspecified; R41.82 Altered mental status, unspecified; E03.9 Hypothyroidism, unspecified; K21.9 Gastro-esophageal reflux disease without esophagitis; Z86.16 Personal history of COVID-19; Z91.011 Allergy to milk products; Z88.8 Allergy status to other drugs, medicaments and biological substances; Z79.899 Other long term (current) drug therapy | CPT/HCPCS: 80305-QW; 81003; 99283 ==

== ENCOUNTER 2023-06-01 14:25 | Emergency (ER) | payer MEDICARE, MEDICAID ==
[2023-06-01] MEDS ORDERED: Sodium Chloride 0.9% 1,000 ML IV ONE (14:36)
[2023-06-01 14:52] LABS: BASOPHILS ABSOLUTE AUTO 0.03 K/uL (0.00-0.20); BASOPHILS PERCENT AUTO 0.4 % (0.0-1.0); HEMATOCRIT 41.2 % (42.0-52.0); HEMOGLOBIN 14.2 g/dL (14.0-18.0); IMMATURE GRAN ABSOLUTE AUTO 0.02 K/uL (0.00-0.05); IMMATURE GRAN PERCENT AUTO 0.3 % (0.0-0.4); LYMPHOCYTES ABSOLUTE AUTO 3.46 K/uL (1.00-4.80); LYMPHOCYTES PERCENT AUTO 48.1 % (24.0-44.0); MEAN CORPUSCULAR HEMOGLOBIN 29.7 pg (28.0-32.0); MEAN CORPUSCULAR HGB CONC 34.5 g/dL (32.0-36.0); MEAN CORPUSCULAR VOLUME 86.2 fL (83.0-99.0); MEAN PLATELET VOLUME 11.2 fL (9.4-12.4); MONOCYTES ABSOLUTE AUTO 1.08 K/uL (0.00-0.80); NEUTROPHILS ABSOLUTE AUTO 2.61 K/uL (1.80-7.70); NEUTROPHILS PERCENT AUTO 36.2 % (41.0-71.0); PLATELET COUNT,PLT 246 K/uL (150-400); RED BLOOD CELL COUNT 4.78 M/uL (4.52-5.90)
[2023-06-01 14:58] LABS: APPEARANCE,URINE CLOUDY; GLUCOSE,URINE NEGATIVE (NEGATIVE); KETONES,URINE TRACE mg/dL (NEGATIVE); LEUKOCYTE ESTERASE,URINE NEGATIVE (NEGATIVE); NITRITE,URINE NEGATIVE (NEGATIVE); OCCULT BLOOD,URINE NEGATIVE (NEGATIVE); PH,URINE 7.5 (5.0-8.0); PROTEIN,URINE NEGATIVE (NEGATIVE)
[2023-06-01 15:00] LABS: BILIRUBIN,URINE SMALL (NEGATIVE); COLOR,URINE DARK YELLOW
[2023-06-01 15:08] LABS: AMPHETAMINES SCREEN, URINE PRESUMPTIVE POSITIVE (CUTOFF=500); BARBITURATE SCREEN,URINE PRESUMPTIVE POSITIVE (CUTOFF=200); BENZODIAZEPINES SCREEN,URINE PRESUMPTIVE POSITIVE (CUTOFF=150); BUPRENORPHINE SCREEN,URINE NEGATIVE (CUTOFF=10); METHADONE SCREEN, URINE NEGATIVE (CUTOFF=200); METHAMPHETAMINES SCREEN, URINE NEGATIVE (CUTOFF=500); OXYCODONE SCREEN,URINE NEGATIVE (CUT0FF=100); PCP SCREEN,URINE NEGATIVE (CUTOFF=25); THC SCREEN,URINE 20 NG/ML NEGATIVE (CUTOFF=50)
[2023-06-01 15:30] LABS: A/G RATIO 0.9 (0.9-1.6); ALANINE AMINOTRANSFERASE,ALT 19 IU/L (14-63); ALBUMIN 3.4 g/dL (3.4-5.0); ALKALINE PHOSPHATASE 71 U/L (46-116); ASPARTATE AMNIOTRANSFERASE,AST 10 IU/L (15-37); BILIRUBIN TOTAL 0.2 mg/dL (0.2-1.0); BLOOD UREA NITROGEN,BUN 16 mg/dL (7.0-18.0); CALCIUM 8.5 mg/dL (8.5-10.1); CARBON DIOXIDE,CO2 23.1 mmol/L (21.0-32.0); CHLORIDE,CL 111 mmol/L (98-107); CREATININE 1.3 mg/dL (0.8-1.3); EST CRCL DRUG DOSING (CG) 56.76 mL/min; GLUCOSE RANDOM 94 mg/dL (74-106); MAGNESIUM 1.8 mg/dL (1.8-2.4); POTASSIUM,K 3.3 mmol/L (3.5-5.1); SODIUM,NA 149 mmol/L (136-148); TSH ULTRASENSITIVE 4.97 uIU/mL (0.36-3.74)
[2023-06-01 15:32] LABS: ESTIMATED GFR 78 mL/min (>60); ETHANOL BLOOD MEDICAL < 3.0 mg/dL
[2023-06-01 15:56] LABS: T4 FREE 0.62 ng/dL (0.76-1.46)
== END 2023-06-01 16:26 | disposition home or self-care (01) ==
LOC: MW.ED 14:25
DX: E86.0 Dehydration (principal); T44.7X5A Adverse effect of beta-adrenoreceptor antagonists, initial encounter; J45.909 Unspecified asthma, uncomplicated; K21.9 Gastro-esophageal reflux disease without esophagitis; E03.9 Hypothyroidism, unspecified; Z86.16 Personal history of COVID-19; Z79.899 Other long term (current) drug therapy; Z91.011 Allergy to milk products; Z88.8 Allergy status to other drugs, medicaments and biological substances
CPT/HCPCS: 36415; 80053; 80305; 80307; 81003; 82947; 83735; 84439; 84443; 85025; 96360; 99284; J7030; 99282

== ENCOUNTER 2024-03-20 10:29 | Emergency (ER) | payer MEDICAID, MEDICARE, OTHER ==
[2024-03-20 11:21] LABS: BASOPHILS ABSOLUTE AUTO 0.02 K/uL (0.00-0.20); BASOPHILS PERCENT AUTO 0.2 % (0.0-1.0); EOSINOPHILS ABSOLUTE AUTO 0.01 K/uL (0.00-0.45); EOSINOPHILS PERCENT AUTO 0.1 % (0.0-6.0); HEMATOCRIT 40.3 % (42.0-52.0); HEMOGLOBIN 13.5 g/dL (14.0-18.0); IMMATURE GRAN ABSOLUTE AUTO 0.04 K/uL (0.00-0.05); IMMATURE GRAN PERCENT AUTO 0.4 % (0.0-0.4); LYMPHOCYTES ABSOLUTE AUTO 2.25 K/uL (1.00-4.80); MEAN CORPUSCULAR HEMOGLOBIN 28.3 pg (28.0-32.0); MEAN CORPUSCULAR HGB CONC 33.5 g/dL (32.0-36.0); MEAN CORPUSCULAR VOLUME 84.5 fL (83.0-99.0); MEAN PLATELET VOLUME 10.9 fL (9.4-12.4); MONOCYTES ABSOLUTE AUTO 1.11 K/uL (0.00-0.80); MONOCYTES PERCENT AUTO 10.8 % (0.0-8.0); NEUTROPHILS ABSOLUTE AUTO 6.81 K/uL (1.80-7.70); NEUTROPHILS PERCENT AUTO 66.5 % (41.0-71.0); PLATELET COUNT,PLT 220 K/uL (150-400); RED BLOOD CELL COUNT 4.77 M/uL (4.52-5.90); WHITE BLOOD CELL COUNT,WBC 10.24 K/uL (3.9-11.3)
[2024-03-20] MEDS: Sodium Chloride 0.9% 1,000 ML IV ONE ×2 (11:21→12:34)
[2024-03-20 11:33] LABS: APPEARANCE,URINE CLEAR; BILIRUBIN,URINE NEGATIVE (NEGATIVE); COLOR,URINE YELLOW; GLUCOSE,URINE NEGATIVE (NEGATIVE); KETONES,URINE NEGATIVE (NEGATIVE); LEUKOCYTE ESTERASE,URINE NEGATIVE (NEGATIVE); NITRITE,URINE NEGATIVE (NEGATIVE); OCCULT BLOOD,URINE NEGATIVE (NEGATIVE); PROTEIN,URINE NEGATIVE (NEGATIVE); UROBILINOGEN,URINE 0.2 EU/dL (<2.0)
[2024-03-20 12:01] LABS: A/G RATIO 1.1 (0.9-1.6); ALBUMIN 3.8 g/dL (3.4-5.0); BILIRUBIN TOTAL 0.4 mg/dL (0.2-1.0); CARBON DIOXIDE,CO2 26.2 mmol/L (21.0-32.0); CREATININE 1.3 mg/dL (0.8-1.3); EST CRCL DRUG DOSING (CG) 63.7 mL/min; POTASSIUM,K 3.5 mmol/L (3.5-5.1); PROTEIN TOTAL,TP 7.3 g/dL (6.4-8.2)
[2024-03-20 12:07] LABS: LACTIC ACID 2.1 mmol/L (0.4-2.0)
[2024-03-20 13:08] LABS: LACTIC ACID 1.4 mmol/L (0.4-2.0)
== END 2024-03-20 13:30 | disposition home or self-care (01) ==
LOC: MW.ED 10:29
DX: R56.9 Unspecified convulsions (principal); Z75.8 Other problems related to medical facilities and other health care; J45.909 Unspecified asthma, uncomplicated; E03.9 Hypothyroidism, unspecified; Z86.16 Personal history of COVID-19; Z79.899 Other long term (current) drug therapy; Z79.890 Hormone replacement therapy; Z91.011 Allergy to milk products; Z88.8 Allergy status to other drugs, medicaments and biological substances
CPT/HCPCS: 36415; 70450; 80053; 81003; 83605; 85025; 96360; 96361; 99285; J7030; 99284

== ENCOUNTER 2024-04-03 11:46 | Emergency (ER) | payer OTHER ==
[2024-04-03] MEDS: Ibuprofen 600 MG Tab PO ONE (12:22)
== END 2024-04-03 13:20 | disposition home or self-care (01) ==
LOC: MW.ED 11:46
DX: R07.9 Chest pain, unspecified (principal); Z75.8 Other problems related to medical facilities and other health care; J45.909 Unspecified asthma, uncomplicated; E03.9 Hypothyroidism, unspecified; Z88.9 Allergy status to unspecified drugs, medicaments and biological substances; Z91.011 Allergy to milk products
CPT/HCPCS: 71046; 93005; 99285; A9270

== ENCOUNTER 2024-04-07 12:26 | Emergency (ER) | payer OTHER ==
[2024-04-07] MEDS: Alum Hydrox/Mag Hydrox/Simeth 15 ML, Lidocaine 2% 5 ML PO STA (12:55)
[2024-04-07] MEDS: Acetaminophen 500 MG Tab PO STA (12:55)
[2024-04-07 13:13] LABS: BASOPHILS ABSOLUTE AUTO 0.04 K/uL (0.00-0.20); BASOPHILS PERCENT AUTO 0.3 % (0.0-1.0); EOSINOPHILS ABSOLUTE AUTO 0.01 K/uL (0.00-0.45); EOSINOPHILS PERCENT AUTO 0.1 % (0.0-6.0); HEMATOCRIT 40.2 % (42.0-52.0); HEMOGLOBIN 13.1 g/dL (14.0-18.0); IMMATURE GRAN ABSOLUTE AUTO 0.15 K/uL (0.00-0.05); LYMPHOCYTES ABSOLUTE AUTO 3.04 K/uL (1.00-4.80); LYMPHOCYTES PERCENT AUTO 19.9 % (24.0-44.0); MEAN CORPUSCULAR HEMOGLOBIN 27.9 pg (28.0-32.0); MEAN CORPUSCULAR HGB CONC 32.6 g/dL (32.0-36.0); MEAN CORPUSCULAR VOLUME 85.5 fL (83.0-99.0); MEAN PLATELET VOLUME 10.6 fL (9.4-12.4); MONOCYTES ABSOLUTE AUTO 1.43 K/uL (0.00-0.80); MONOCYTES PERCENT AUTO 9.4 % (0.0-8.0); NEUTROPHILS ABSOLUTE AUTO 10.61 K/uL (1.80-7.70); NEUTROPHILS PERCENT AUTO 69.3 % (41.0-71.0); PLATELET COUNT,PLT 310 K/uL (150-400); WHITE BLOOD CELL COUNT,WBC 15.28 K/uL (3.9-11.3)
[2024-04-07 13:36] LABS: A/G RATIO 0.9 (0.9-1.6); ALBUMIN 3.3 g/dL (3.4-5.0); BILIRUBIN TOTAL 0.3 mg/dL (0.2-1.0); CALCIUM 8.4 mg/dL (8.5-10.1); CARBON DIOXIDE,CO2 26.3 mmol/L (21.0-32.0); CREATININE 1.1 mg/dL (0.8-1.3); EST CRCL DRUG DOSING (CG) 75.28 mL/min; POTASSIUM,K 4.5 mmol/L (3.5-5.1); PROTEIN TOTAL,TP 7.1 g/dL (6.4-8.2)
[2024-04-07 13:41] LABS: MAGNESIUM 1.9 mg/dL (1.8-2.4)
== END 2024-04-07 14:44 | disposition home or self-care (01) ==
LOC: MW.ED 12:26
DX: R07.9 Chest pain, unspecified (principal); K29.00 Acute gastritis without bleeding; K21.9 Gastro-esophageal reflux disease without esophagitis; Z86.16 Personal history of COVID-19; Z79.899 Other long term (current) drug therapy; Z88.8 Allergy status to other drugs, medicaments and biological substances; Z75.8 Other problems related to medical facilities and other health care
CPT/HCPCS: 36415; 71046; 80053; 83690; 83735; 84484; 85025; 93005; 99285; A9270

== ENCOUNTER 2025-03-29 05:07 | Emergency (ER) | payer MEDICARE ==
[2025-03-29 05:36] LABS: MEAN PLATELET VOLUME 10.0 fL (9.4-12.4); NRBC ABSOLUTE 0.00 K/uL (0.00-0.02); NRBC PERCENT 0.0 /100WBC (0.0-0.2); PLATELET COUNT,PLT 197 K/uL (150-400); RED BLOOD CELL COUNT 5.31 M/uL (4.52-5.90); WHITE BLOOD CELL COUNT,WBC 17.13 K/uL (3.9-11.3)
[2025-03-29 05:57] LABS: A/G RATIO 1.0 (0.9-1.6); ALANINE AMINOTRANSFERASE,ALT 35 IU/L (14-63); ASPARTATE AMNIOTRANSFERASE,AST 23 IU/L (15-37); BILIRUBIN TOTAL 0.4 mg/dL (0.2-1.0); BLOOD UREA NITROGEN,BUN 16 mg/dL (7.0-18.0); CARBON DIOXIDE,CO2 27.3 mmol/L (21.0-32.0); CHLORIDE,CL 101 mmol/L (98-107); CREATININE 1.3 mg/dL (0.8-1.3); GLUCOSE RANDOM 102 mg/dL (74-106); LYMPHOCYTES ABSOLUTE MAN 2.06 K/uL (1.00-4.80); LYMPHOCYTES PERCENT MAN 12 % (24-44); MONOCYTES ABSOLUTE MAN 1.54 K/uL (0.00-0.80); MONOCYTES PERCENT MAN 9 % (0-8); POTASSIUM,K 4.2 mmol/L (3.5-5.1); PROTEIN TOTAL,TP 7.9 g/dL (6.4-8.2); SEG NEUTROPHILS ABSOLUTE MAN 13.53 K/uL (1.80-7.70); SEG NEUTROPHILS PERCENT MAN 79 % (41-71); SODIUM,NA 139 mmol/L (136-148)
[2025-03-29 05:58] LABS: ESTIMATED GFR 77 mL/min (>60)
== END 2025-03-29 06:35 | disposition home or self-care (01) ==
LOC: MW.ED 05:07
DX: R05.9 Cough, unspecified (principal); R19.7 Diarrhea, unspecified; R50.9 Fever, unspecified; R11.2 Nausea with vomiting, unspecified; F43.9 Reaction to severe stress, unspecified; Z88.8 Allergy status to other drugs, medicaments and biological substances; Z91.0110 Allergy to milk products, unspecified; Z79.899 Other long term (current) drug therapy; Z86.16 Personal history of COVID-19
CPT/HCPCS: 36415; 80053; 83690; 83735; 85025; 87428-QW; 87651; 99283; 99284

== ENCOUNTER 2025-04-01 07:33 | Emergency (ER) | payer MEDICARE | END 2025-04-01 09:02 | disposition home or self-care (01) | LOC: MW.ED 07:33 | DX: R05.9 Cough, unspecified (principal); R09.81 Nasal congestion; J45.909 Unspecified asthma, uncomplicated; M19.90 Unspecified osteoarthritis, unspecified site; Z79.899 Other long term (current) drug therapy; Z88.8 Allergy status to other drugs, medicaments and biological substances | CPT/HCPCS: 71046; 71046-26; 87428-QW; 99283; 99285 ==

== ENCOUNTER 2025-04-13 22:28 | Emergency (ER) | payer MEDICARE | END 2025-04-13 23:35 | disposition home or self-care (01) | LOC: MW.ED 22:28 | DX: R04.0 Epistaxis (principal); J45.909 Unspecified asthma, uncomplicated; Z91.0110 Allergy to milk products, unspecified; Z88.8 Allergy status to other drugs, medicaments and biological substances; Z79.899 Other long term (current) drug therapy | CPT/HCPCS: 99283; A9270 ==

== ENCOUNTER 2025-05-24 17:47 | Emergency (ER) | payer MEDICARE, BC ==
[2025-05-24] MEDS ORDERED: Sodium Chloride 0.9% 2.5 ML Syringe FLUSH PRN (18:01)
[2025-05-24] MEDS ORDERED: Sodium Chloride 0.9% 10 ML Syringe FLUSH PRN (18:01)
[2025-05-24 18:19] LABS: MEAN PLATELET VOLUME 11.5 fL (9.4-12.4); NRBC ABSOLUTE 0.00 K/uL (0.00-0.02); NRBC PERCENT 0.0 /100WBC (0.0-0.2); PLATELET COUNT,PLT 224 K/uL (150-400); RED BLOOD CELL COUNT 5.52 M/uL (4.52-5.90); WHITE BLOOD CELL COUNT,WBC 15.02 K/uL (3.9-11.3)
[2025-05-24 18:47] LABS: A/G RATIO 0.9 (0.9-1.6); ALANINE AMINOTRANSFERASE,ALT 37 IU/L (14-63); ASPARTATE AMNIOTRANSFERASE,AST 21 IU/L (15-37); BILIRUBIN TOTAL 0.5 mg/dL (0.2-1.0); BLOOD UREA NITROGEN,BUN 34 mg/dL (7.0-18.0); CARBON DIOXIDE,CO2 30.3 mmol/L (21.0-32.0); CHLORIDE,CL 103 mmol/L (98-107); CREATININE 1.4 mg/dL (0.8-1.3); EST CRCL DRUG DOSING (CG) 58.11 mL/min; GLUCOSE RANDOM 104 mg/dL (74-106); POTASSIUM,K 4.1 mmol/L (3.5-5.1); PROTEIN TOTAL,TP 7.5 g/dL (6.4-8.2); SODIUM,NA 140 mmol/L (136-148)
[2025-05-24 18:50] LABS: ESTIMATED GFR 70 mL/min (>60)
[2025-05-24 19:16] LABS: LYMPHOCYTES ABSOLUTE MAN 3.76 K/uL (1.00-4.80); LYMPHOCYTES PERCENT MAN 25 % (24-44); MONOCYTES ABSOLUTE MAN 0.90 K/uL (0.00-0.80); MONOCYTES PERCENT MAN 6 % (0-8); SEG NEUTROPHILS ABSOLUTE MAN 10.36 K/uL (1.80-7.70); SEG NEUTROPHILS PERCENT MAN 69 % (41-71)
== END 2025-05-24 20:29 | disposition home or self-care (01) ==
LOC: MW.ED 17:47
DX: R07.89 Other chest pain (principal); I10 Essential (primary) hypertension; J45.909 Unspecified asthma, uncomplicated; E03.9 Hypothyroidism, unspecified; K21.9 Gastro-esophageal reflux disease without esophagitis; Z91.0110 Allergy to milk products, unspecified; Z88.8 Allergy status to other drugs, medicaments and biological substances; Z79.899 Other long term (current) drug therapy
CPT/HCPCS: 36415; 71045; 80053; 84484; 85025; 93005; 99285; A9270